=== PATIENT | female | born 1990 | race Caucasian/White ===

== ENCOUNTER 2016-09-20 10:31 | Inpatient (IN) | payer OTHER ==
[~2016-09-20] VITALS: Ht 162.6 cm; Wt 58.1 kg
[2016-09-20] MEDS ORDERED: ONDA4TAB6 PO (10:46)
[2016-09-20] MEDS ORDERED: ACET-654 PO (10:46)
[2016-09-20] MEDS ORDERED: SYNT150T PO (10:46)
[2016-09-20] MEDS ORDERED: MORP15TA2 PO (10:46)
[2016-09-20] MEDS ORDERED: ONDANSETRON 4MG/2ML VIAL (J2405) IV ONE ×2 (13:00→19:00)
[2016-09-20] MEDS ORDERED: KETOROLAC 30 MG/ML VIAL (J1885) IV ONE (13:00)
[2016-09-20] MEDS ORDERED: GASTROGRAFIN SOLUTION 30ML (Q9963) As Ordered ONE (13:26)
[2016-09-20 14:17] LABS: BASO % 0.4 % (0.0-1.0); LARGE UNSTAINED CELL # 0.1 K/mm3 (0.0-0.4); LARGE UNSTAINED CELL % 1.2 % (0.0-4.0); LYMPH # 1.4 K/mm3 (1.5-6.5); MEAN CORPUSCULAR HEMOGLOBIN 33.3 pg (27.0-33.0); MEAN CORPUSCULAR HGB CONC 33.2 g/dl (32.0-36.5); MEAN CORPUSCULAR VOLUME 100.4 fl (80.0-96.0); MONO # 0.4 K/mm3 (0.0-0.8); MONO % 8.4 % (0.0-5.0); NEUTROPHILS # 2.7 K/mm3 (1.8-7.7); PLATELET COUNT, AUTOMATED 195 k/mm3 (150-450); WHITE BLOOD COUNT 4.5 K/mm3 (4.0-10.0)
[2016-09-20 14:37] LABS: ALBUMIN 3.7 GM/DL (3.2-5.2); ALBUMIN/GLOBULIN RATIO 1.06 (1.00-1.93); ALKALINE PHOSPHATASE 111 U/L (45-117); ALT/SGPT 104 U/L (12-78); AMYLASE 368 U/L (25-115); ANION GAP 5 MEQ/L (8-16); AST/SGOT 88 U/L (15-37); BILIRUBIN,DIRECT 0.1 MG/DL (0.0-0.2); BILIRUBIN,TOTAL 0.5 MG/DL (0.2-1.0); BLOOD UREA NITROGEN 5 MG/DL (7-18); CALCIUM LEVEL 8.9 MG/DL (8.5-10.1); CARBON DIOXIDE LEVEL 27 MEQ/L (21-32); CHLORIDE LEVEL 102 MEQ/L (98-107); CREATININE FOR GFR 0.63 MG/DL (0.55-1.02); GLOMERULAR FILTRATION RATE > 60.0 (>60); GLUCOSE, FASTING 82 MG/DL (70-105); SODIUM LEVEL 134 MEQ/L (136-145); TOTAL PROTEIN 7.2 GM/DL (6.4-8.2)
[2016-09-20] MEDS ORDERED: ISOVUE-370 76% 100ML VIAL (Q9967) As Ordered ONE (15:05)
[2016-09-20] MEDS ORDERED: MORPHINE 2 MG/ML 1ML SYRINGE IV ONE (16:15)
--- NOTE | 2016-09-20 17:33 | REP ---
CT ABDOMEN AND PELVIS WITH ORAL AND IV CONTRAST: TECHNIQUE: Axial contrast enhanced images from the lung bases to the pubic symphysis using 100 mL Isovue 370 intravenous contrast material with multiplanar reformations. There are mild dependent atelectatic changes in the visualized lung bases. Patchy low density throughout the liver is compatible with geographic fatty infiltration. Spleen, adrenals and kidneys appear unremarkable. There is diffuse low density in the tail of the pancreas with surrounding streaky inflammatory change compatible with pancreatitis. There is a pseudocyst also seen in the tail of the pancreas measuring 2.8 cm in diameter. No other cysts are seen in the abdomen. No adenopathy is seen. There is no abdominal aortic aneurysm. There is no free air. There is mild free fluid in the pelvis. No bowel wall thickening is seen. I see no pelvic mass. The urinary bladder appears unremarkable. IMPRESSION: Findings compatible with pancreatitis. There is a pseudocyst in the tail of the pancreas 2.8 cm in diameter. There is mild free fluid in the pelvis. There is patchy fatty infiltration of the liver. Signed by Monroe Sanders MD 09/21/2016 07:41 P
--- NOTE | 2016-09-20 18:02 | REP ---
RIGHT UPPER QUADRANT ULTRASOUND: Real-time sonographic evaluation of the right upper quadrant performed. The gallbladder demonstrates no evidence of intraluminal sludge or calculi, wall thickening or pericholecystic fluid. There is no intrahepatic or extrahepatic biliary dilatation, common bile duct measuring 4 mm in diameter. The liver demonstrates no mass. The pancreas is not optimally seen due to overlying bowel gas in the region of the pancreatic tail, but the remaining portion demonstrates no significant abnormality. The right kidney demonstrates no hydronephrosis or nephrolithiasis with normal size at 9.4 cm in length. No ascites is seen. IMPRESSION: Essentially negative right upper quadrant ultrasound. Signed by Monroe Sanders MD 09/21/2016 07:41 P
[2016-09-20] MEDS ORDERED: MORPHINE 4 MG/ML 1ML SYRINGE IV ONE (19:00)
[2016-09-20] MEDS: NS 1,000 ML IV SCH (19:28)
--- NOTE | 2016-09-20 20:07 | HPEPDOC ---
General Date of Admission Sep 20, 2016 at 19:28 Other Providers PCP: Morales Barajas DO Chief Complaint The patient is a 26-year-old female admitted with a reason for visit of Pancreatic Pseudocyst. History of Present Illness 26-year-old female with history of papillary thyroid cancer status post total thyroidectomy in 2012 and currently on supplemental levothyroxine presented to the ER with a chief complaint of abdominal pain. According to the patient she was diagnosed with pancreatitis one month ago in the [facility]. She was subsequently discharged home after her lipase levels improved. However, the patient ended up going back to the hospital within 1 week in the [facility] area after she had recurrent abdominal pain. At that time , the patient states that she was diagnosed with a pancreatic pseudocyst on CT. She was discharged home on by mouth antibiotics and by mouth morphine. The patient states that she had been doing well over the last 2-3 weeks, however her abdominal pain returned 3 days ago. She describes the pain as sharp predominantly on the left side and radiating around the back. She rates the pain 8 out of 10 at its worst. The pain is exacerbated by eating anything. She does note that she has had episodes of nausea and vomiting associated with abdominal pain. She denies any diarrhea. The patient denies any fevers, chills, chest pain, palpitations, shortness of breath, recent sick contacts, alcohol use , or any other acute complaints. In the ER, a CT scan of the abdomen was notable for findings compatible with pancreatitis. In addition, there was a pseudocyst in the tail of the pancreas measuring 2.8 cm in diameter noted. These findings were discussed with our on- call surgeon who has recommended no surgical intervention at this time, and to continue to treat medically. The patient will be admitted to the hospitalist service for further medical management. Home Medications Scheduled Levothyroxine Sodium (Synthroid) 150 Mcg Tab, 150 MCG PO DAILY, (Reported) Scheduled PRN Acetaminophen (Acetaminophen) 325 Mg Tab, 650 MG PO Q4H PRN for PAIN, (Reported) Morphine Sulfate (Morphine Sulfate) 15 Mg Tab, 15 MG PO QHS PRN for PAIN, ( Reported) Ondansetron (Ondansetron Odt) 4 Mg Tab, 4 MG PO TID PRN for NAUSEA, (Reported) Allergies Coded Allergies: Cefaclor (Verified Allergy, Unknown, 09/20/16) Past Medical History Medical History As noted in HPI. Surgical History Total thyroidectomy in 2013, tonsillectomy Family History Significant Family History: No pertinent family hx Social History * Smoker: Denies Alcohol: occationally Drugs: denies Recent Travel/Sick Contacts: Denies: Recent sick contacts Review of Symptoms Other systems 10 point review of systems negative unless otherwise specified in HPI. Physical Examination General Exam: Positive: Alert, Cooperative, No Acute Distress, Other (tearful/ emotional when talking about the last few weeks of recurrent ER visits/ admissions) ENT Exam: Positive: Atraumatic, Mucous membr. moist/pink Neck Exam: Negative: JVD Chest Exam: Positive: Clear to auscultation, Normal air movement Heart Exam: Positive: Rate Normal, Normal S1, Normal S2 Telemetry: Positive: Sinus Abdomen Exam: Positive: Soft, Other (Mild tenderness to deep palpation L>R quadrants. No guarding, rebound tenderness, or rigidity noted) Extremity Exam: Negative: Tenderness, Swelling Psych Exam: Positive: Oriented x 3 Vital Signs Vital Signs Date Time Temp Pulse Resp B/P (MAP) Pulse Ox O2 Delivery O2 Flow Rate FiO2 09/20/16 19:19 18 09/20/16 17:56 98.7 63 135/73 (93) 98 09/20/16 15:03 Room Air Laboratory Data Labs 24H Laboratory Tests 2 09/20/16 13:37: White Blood Count 4.5, Red Blood Count 3.39L, Hemoglobin 11.3L, Hematocrit 34.0L , Mean Corpuscular Volume 100.4H, Mean Corpuscular Hemoglobin 33.3H, Mean Corpuscular Hemoglobin Concent 33.2, Red Cell Distribution Width 13.0, Platelet Count 195, Neutrophils (%) (Auto) 60.0, Lymphocytes (%) (Auto) 29.0, Monocytes ( %) (Auto) 8.4H, Eosinophils (%) (Auto) 1.0, Basophils (%) (Auto) 0.4, Neutrophils # (Auto) 2.7, Lymphocytes # (Auto) 1.4L, Monocytes # (Auto) 0.4, Eosinophils # (Auto) 0.0, Basophils # (Auto) 0.0, Large Unclassified Cells % 1.2 , Large Unclassified Cells # 0.1, Urine Appearance CLEAR, Urine Color YELLOW, Urine pH 6.0, Urine Specific [place] 1.006, Urine Protein NEGATIVE, Urine Glucose (UA) NEGATIVE, Urine Ketones NEGATIVE, Urine Urobilinogen 0.2, Urine Bilirubin NEGATIVE, Urine Leukocyte Esterase NEGATIVE, Urine Blood NEGATIVE, Urine Nitrite NEGATIVE, Urine WBC (Auto) 1, Urine RBC (Auto) 2, Urine Hyaline Casts (Auto) 0, Urine Bacteria (Auto) NEGATIVE, Urine Squamous Epithelial Cells 0, Urine Sperm (Auto) , Anion Gap 5L, Glomerular Filtration Rate > 60.0, Lactic Acid Level 0.6, Calcium Level 8.9, Aspartate Amino Transf (AST/SGOT) 88H, Alanine Aminotransferase (ALT/SGPT) 104H, Alkaline Phosphatase 111, Total Bilirubin 0.5, Direct Bilirubin 0.1, C-Reactive Protein, Quantitative 5.31H, Total Protein 7.2, Albumin 3.7, Albumin/Globulin Ratio 1.06, Amylase Level 368H , Lipase 2241H CBC/BMP Laboratory Tests 09/20/16 13:37 Red Blood Count 3.39 L, Mean Corpuscular Volume 100.4 H, Mean Corpuscular Hemoglobin 33.3 H, Mean Corpuscular Hemoglobin Concent 33.2, Red Cell Distribution Width 13.0, Neutrophils (%) (Auto) 60.0, Lymphocytes (%) (Auto) 29.0, Monocytes (%) (Auto) 8.4 H, Eosinophils (%) (Auto) 1.0, Basophils (%) ( Auto) 0.4, Neutrophils # (Auto) 2.7, Lymphocytes # (Auto) 1.4 L, Monocytes # ( Auto) 0.4, Eosinophils # (Auto) 0.0, Basophils # (Auto) 0.0 Plan / VTE VTE Prophylaxis Ordered?: Yes Plan Plan Recurrent Pancreatitis with Pseudocyst Formation CT Scan of the Abd notable for pancreatitis and a pseudocyst in the tail of the pancreas 2.8 cm in diameter U/S of the RUQ with no acute findings These findings were discussed by our ER provider with surgeon vice president consulting services-->no surgical intervention indicated at this time, cont med management Lipase level noted to be 2200+ Patient Kept NPO IVF Hydration Morphine prn for pain We will cont to monitor the patient and advance diet as tolerated Transaminitis Liver U/S with no acute findings noted Will cont to serially trend History of papillary thyroid cancer status post thyroidectomy in 2012 Cont Supplemental Levothyroxine DVT Prophylaxis Lovenox SC The patient will be admitted under the service of Dr. Salgado, who will begin to follow the patient on 09/21/16 @ 7am. AGNIESZKA COLLAZO MD Sep 20, 2016 20:07
[2016-09-20 20:45] VITALS: BP 114/67
[2016-09-20] MEDS: MORPHINE 2 MG/ML 1ML SYRINGE IV PRN (22:31)
[2016-09-21] MEDS: ONDANSETRON 4MG/2ML VIAL (J2405) IV PRN ×3 (03:00→22:13)
[2016-09-21] MEDS: NS 1,000 ML IV SCH (03:00)
[2016-09-21] MEDS: MORPHINE 2 MG/ML 1ML SYRINGE IV PRN ×3 (03:01→22:13)
[2016-09-21 04:00] VITALS: BP 101/49
[2016-09-21] MEDS: LEVOTHYROXINE 150MCG TABLET (0.15MG) PO SCH (06:01)
[2016-09-21 07:02] LABS: MEAN CORPUSCULAR HEMOGLOBIN 33.7 pg (27.0-33.0); MEAN CORPUSCULAR HGB CONC 32.9 g/dl (32.0-36.5); MEAN CORPUSCULAR VOLUME 102.4 fl (80.0-96.0); RED CELL DISTRIBUTION WIDTH 12.9 % (11.5-14.5); WHITE BLOOD COUNT 3.6 K/mm3 (4.0-10.0)
[2016-09-21 07:21] LABS: ALBUMIN 3.1 GM/DL (3.2-5.2); ALBUMIN/GLOBULIN RATIO 1.11 (1.00-1.93); ALKALINE PHOSPHATASE 83 U/L (45-117); ALT/SGPT 67 U/L (12-78); ANION GAP 12 MEQ/L (8-16); AST/SGOT 38 U/L (15-37); BILIRUBIN,TOTAL 0.7 MG/DL (0.2-1.0); BLOOD UREA NITROGEN 12 MG/DL (7-18); CALCIUM LEVEL 8.2 MG/DL (8.5-10.1); CARBON DIOXIDE LEVEL 18 MEQ/L (21-32); CHLORIDE LEVEL 108 MEQ/L (98-107); CREATININE FOR GFR 0.54 MG/DL (0.55-1.02); GLOMERULAR FILTRATION RATE > 60.0 (>60); GLUCOSE, FASTING 57 MG/DL (70-105); MAGNESIUM LEVEL 1.8 MG/DL (1.8-2.4); SODIUM LEVEL 138 MEQ/L (136-145); TOTAL PROTEIN 5.9 GM/DL (6.4-8.2); TRIGLYCERIDES LEVEL 47 MG/DL (<150)
[2016-09-21 07:35] VITALS: BP 100/52
[2016-09-21] MEDS: ENOXAPARIN 40 MG/0.4 ML SYRINGE (J1650) SC SCH (09:09)
[2016-09-21] MEDS: ACETAMINOPHEN TAB 650MG DOSE (2X325MG) PO PRN (09:10)
[2016-09-21] MEDS ORDERED: PERCOCET 5MG/325MG TAB PO PRN (09:15)
[2016-09-21] MEDS: D5W/0.45% SODIUM CHLORIDE 1,000 ML IV SCH ×2 (09:35→20:00)
[2016-09-21] MEDS ORDERED: MORPHINE 2 MG/ML 1ML SYRINGE As Ordered ONE (10:51)
[2016-09-21] MEDS: IBUPROFEN 400 MG TAB PO PRN ×2 (14:41→22:13)
[2016-09-21 15:30] VITALS: BP 115/74
--- NOTE | 2016-09-21 16:20 | IPNPDOC ---
Subjective Date Seen The patient was seen on 09/21/16. Subjective Chief Complaint/HPI The patient is a 26-year-old female admitted with a reason for visit of Pancreatic Pseudocyst. Events since last encounter Patient reports that the pain has improved from yesterday. Shows more sharp and about 8 out of 10. Today is more soreness and is more of a 6 out of 10. Patient denies any chest pain, shortness of breath, palpitations. Patient does admit to drinking alcohol this had been a while back and is not constant. Patient has been admitted to several hospitals with pancreatitis over the last month. Nausea is being well controlled with Zofran in the hospital and no vomiting since being admitted. Is currently nothing by mouth and patient admits to being thirsty and hungry. Constitutional: Denies: Chills, Fever Eyes: Denies: Vision change ENT: Denies: Head Aches, Ear Pain Skin: Denies: Rash, Lesions Pulmonary: Denies: Dyspnea, Cough Cardiovascular: Denies: Chest Pain, Palpitations Gastrointestinal: Reports: Nausea (controlled with zofran. ), Vomiting (Did have some vomiting 1 week ago. No blood. None since then. None on this admission. ), Abdominal Pain (Pressure. 6/10, was more sharp and 8/10 on admission. ), Denies: Melena, Hematochezia Genitourinary: Denies: Dysuria, Frequency Hematologic: Denies: Bruising, Bleeding Excessively Musculoskeletal: Reports: Back Pain (Some back pressure. ) Neurological: Reports: Weakness (Not eating well, does not feel herself. Weaker all over. ), Denies: Change in speech, Confusion Psych: Reports: Mood Normal Objective Physical Examination General Exam: Positive: Alert, Cooperative, No Acute Distress Eye Exam: Positive: PERRLA, Conjunctiva & lids normal, EOMI, Negative: Sclera icteric ENT Exam: Positive: Atraumatic, Mucous membr. moist/pink Neck Exam: Positive: Supple, Negative: JVD Chest Exam: Positive: Clear to auscultation, Normal air movement Heart Exam: Positive: Rate Normal, Normal S1, Normal S2 Abdomen Exam: Positive: Normal bowel sounds, Soft, Tenderness, Other (Mild tenderness to deep palpation upper>lower quadrants. No guarding, rebound tenderness, or rigidity noted) Extremity Exam: Positive: Normal pulses (radial pulse 2/4 bilaterally), Negative: Edema, Tenderness, Swelling Neuro Exam: Positive: Normal Speech Psych Exam: Positive: Mood NL, Oriented x 3 Assessment /Plan Problems (1) Pancreatic pseudocyst Status: Acute Problem Text: Surgery had been counseled for this patient. Per Dr. Bunn, the patient does not need surgery at this time. Appreciate his assistance in management of this patient at this time. Continue nonsurgical management. Discussed patient with Dr. Dee. Patient was originally scheduled to see Dr. Dee in outpatient setting tomorrow. He agreed to see the patient. Consult has been placed. Appreciate his assistance in management of this patient. Patient is currently on Tylenol by mouth for mild pain and morphine every 2 hours for severe pain. Patient has moderate pain currently and will prescribing patient ibuprofen for this. Patient notes that Percocet and other pain medications similar to its cause her to be nauseous and vomit during previous admissions. Discontinuing the morphine at this time. We'll continue patient on ibuprofen and Tylenol as needed. Patient is currently nothing by mouth at this time. We'll continue this for now. Patient is receiving normal saline IV. We'll change this to D5W half- normal saline due to patient's low glucose this morning. (2) Recurrent pancreatitis Problem Text: Patient is having recurrent episodes of pancreatitis with a past month. Approximately 4 times including this visit. Alcohol is a common cause of pancreatitis. However, patient does not admit to drinking regular basis. Did have a few drinks socially in [place] when she was on leave. Has not had any alcohol since then. This makes this less likely a cause. Gallstones or another common cause of pancreatitis. Liver ultrasound was performed and was read as an essentially negative right upper quadrant ultrasound. This makes this less likely. Different medications can cause pancreatitis. However the only medication patient takes regularly prior to previous month was levothyroxine. This is not a common medication to cause pancreatitis. Hypertriglyceridemia be potential cause. This has not been checked on this admission and is ordered for tomorrow morning to be fasting. This will need to be checked to rule out. Cause at this time is believed to be from her pseudocyst. Approximately 2.[address] scan. General surgery and gastroenterology have been consult. Appreciate their assistance with care of this patient. (3) Transaminitis Problem Text: Liver ultrasound showed no acute findings. Liver enzymes decreased on labs this morning. We'll continue to follow-up as needed. Labs will be ordered for the morning. (4) Hx of papillary thyroid carcinoma Problem Text: Patient has a history of papillary thyroid cancer with thyroidectomy in 2012. Patient takes Synthroid 150 Mcg daily. Continue home dose at this time. Monitor as needed. Plan/VTE VTE Prophylaxis Ordered?: Yes (Lovenox daily subcutaneous) VS, I&O, 24H, Fishbone Vital Signs/I&O Vital Signs Date Time Temp Pulse Resp B/P (MAP) Pulse Ox O2 Delivery O2 Flow Rate FiO2 09/21/16 07:35 99.0 70 18 100/52 (68) 97 Room Air I&O- Last 24 Hours up to 6 AM 09/21/16 05:59 Intake Total 0 ml Output Total 0 ml Balance 0 ml Laboratory Data 24H LABS Laboratory Tests 2 09/20/16 13:37: White Blood Count 4.5, Red Blood Count 3.39L, Hemoglobin 11.3L, Hematocrit 34.0L , Mean Corpuscular Volume 100.4H, Mean Corpuscular Hemoglobin 33.3H, Mean Corpuscular Hemoglobin Concent 33.2, Red Cell Distribution Width 13.0, Platelet Count 195, Neutrophils (%) (Auto) 60.0, Lymphocytes (%) (Auto) 29.0, Monocytes ( %) (Auto) 8.4H, Eosinophils (%) (Auto) 1.0, Basophils (%) (Auto) 0.4, Neutrophils # (Auto) 2.7, Lymphocytes # (Auto) 1.4L, Monocytes # (Auto) 0.4, Eosinophils # (Auto) 0.0, Basophils # (Auto) 0.0, Large Unclassified Cells % 1.2 , Large Unclassified Cells # 0.1, Urine Appearance CLEAR, Urine Color YELLOW, Urine pH 6.0, Urine Specific [place] 1.006, Urine Protein NEGATIVE, Urine Glucose (UA) NEGATIVE, Urine Ketones NEGATIVE, Urine Urobilinogen 0.2, Urine Bilirubin NEGATIVE, Urine Leukocyte Esterase NEGATIVE, Urine Blood NEGATIVE, Urine Nitrite NEGATIVE, Urine WBC (Auto) 1, Urine RBC (Auto) 2, Urine Hyaline Casts (Auto) 0, Urine Bacteria (Auto) NEGATIVE, Urine Squamous Epithelial Cells 0, Urine Sperm (Auto) , Anion Gap 5L, Glomerular Filtration Rate > 60.0, Lactic Acid Level 0.6, Calcium Level 8.9, Aspartate Amino Transf (AST/SGOT) 88H, Alanine Aminotransferase (ALT/SGPT) 104H, Alkaline Phosphatase 111, Total Bilirubin 0.5, Direct Bilirubin 0.1, C-Reactive Protein, Quantitative 5.31H, Total Protein 7.2, Albumin 3.7, Albumin/Globulin Ratio 1.06, Amylase Level 368H , Lipase 2241H 09/21/16 06:40: Anion Gap 12, Glomerular Filtration Rate > 60.0, Calcium Level 8.2L, Aspartate Amino Transf (AST/SGOT) 38H, Alanine Aminotransferase (ALT/SGPT) 67, Alkaline Phosphatase 83, Total Bilirubin 0.7, Total Protein 5.9L, Albumin 3.1L, Albumin/ Globulin Ratio 1.11, Lipase 788H, Blood Urea Nitrogen 12#, Creatinine 0.54L, Sodium Level 138, Potassium Level 4.0, Chloride Level 108H, Carbon Dioxide Level 18L, Triglycerides Level 47, Magnesium Level 1.8 CBC/BMP Laboratory Tests 09/20/16 13:37 Red Blood Count 3.39 L, Mean Corpuscular Volume 100.4 H, Mean Corpuscular Hemoglobin 33.3 H, Mean Corpuscular Hemoglobin Concent 33.2, Red Cell Distribution Width 13.0, Neutrophils (%) (Auto) 60.0, Lymphocytes (%) (Auto) 29.0, Monocytes (%) (Auto) 8.4 H, Eosinophils (%) (Auto) 1.0, Basophils (%) ( Auto) 0.4, Neutrophils # (Auto) 2.7, Lymphocytes # (Auto) 1.4 L, Monocytes # ( Auto) 0.4, Eosinophils # (Auto) 0.0, Basophils # (Auto) 0.0 09/21/16 06:40 Red Blood Count 2.98 L, Mean Corpuscular Volume 102.4 H, Mean Corpuscular Hemoglobin 33.7 H, Mean Corpuscular Hemoglobin Concent 32.9, Red Cell Distribution Width 12.9, Calcium Level 8.2 L, Aspartate Amino Transf (AST/SGOT) 38 H, Alanine Aminotransferase (ALT/SGPT) 67, Alkaline Phosphatase 83, Total Bilirubin 0.7, Triglycerides Level 47, Total Protein 5.9 L, Albumin 3.1 L GME ATTESTATION GME ATTESTATION My preceptor for this patient encounter was Dr. Salgado and he was physically present in the building during the encounter and was fully available. As needed , all aspects of the patient interview, examination, medical decision making process, and medical care plan development were reviewed and approved by the preceptor. Preceptor is aware and concurs with the plan as stated in the body of this note and will attest to such by his/her co-signature. YUNG VAN DO Sep 21, 2016 10:54
[2016-09-22] VITALS: BP 120/75
[2016-09-22] MEDS: ONDANSETRON 4MG/2ML VIAL (J2405) IV PRN ×2 (04:54→18:30)
[2016-09-22] MEDS: D5W/0.45% SODIUM CHLORIDE 1,000 ML IV SCH ×2 (04:55→18:35)
[2016-09-22] MEDS: LEVOTHYROXINE 150MCG TABLET (0.15MG) PO SCH (06:28)
[2016-09-22 08:00] VITALS: BP 106/61
[2016-09-22 08:24] LABS: MEAN CORPUSCULAR HEMOGLOBIN 33.3 pg (27.0-33.0); MEAN CORPUSCULAR HGB CONC 33.8 g/dl (32.0-36.5); MEAN CORPUSCULAR VOLUME 98.5 fl (80.0-96.0); RED CELL DISTRIBUTION WIDTH 12.8 % (11.5-14.5); WHITE BLOOD COUNT 3.1 K/mm3 (4.0-10.0)
--- NOTE | 2016-09-22 08:26 | IPNPDOC ---
Subjective General Date/Time Seen The patient was seen on 09/20/16 at 16:29. Subject Chief Complaint/History The patient is a 26-year-old female admitted with a reason for visit of abdominal pain, subacute pancreatitis with pancreatic pseudocyst. She reports she had acute pancreatitis at about August 22 when she was admitted while in [place] for sudden onset of severe epigastric pain and vomiting. Workup there did not reveal any gallstones. It was suspected maybe due to recent alcohol intake. She reports her brother also has had acute pancreatitis. She stayed there for a few days. She tells me she OD'd on dilaudid. She was eventually discharged home but continues to have severe abdominal pain and was re-admitted at a different hospital. Workup there showed she developed a pancreatic pseudocyst. She stayed another few days until her pain was controlled. She was discharged on 15 mg of oral morphine she takes twice a day. Her abdominal discomfort continue but to a tolerable level (3-5) with the pain meds. 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 She followed with the army doctors in [facility] and has a gastroentorology consult pending with Dr. Dee. Over the weekend and past couple of days patient reports severe abdominal pain with associated nausea. Pain located on the left upper quadrant area worse with movements. She denies fevers or chills. She was advised to be seen at the emergency room. She presented herself at [facility] over the weekend, sent home. She presents herself to our emergency room today. Current Medications Current Medications Current Medications Home Med (Med Rec Complete!) ASDIRECTED XX ; Start 09/20/16 at 15:45; Stop at 15:53; Status DC Allergies Coded Allergies: Cefaclor (Verified Allergy, Unknown, 09/20/16) Objective Physical Examination Examination GENERAL APPEARANCE:Patient seen, laying in bed, awake, alert, and oriented. Fairly comfortable appearing when I walked into the room though she is mildly uncomfortable laying down flat on the bed to removing around the bed . SKI N: Warm and moist. HEENT: Normocephalic, atraumatic. [place] palpebral conjunctiva, anicteric sclerae. Lips and mucosa appear moist. NECK: Supple, no thyromegaly. No obvious jugular venous distention. LUNGS: Clear to auscultation bilaterally. No wheezing appreciated. HEART: No chest wall abnormalities. Regular rate and rhythm with no murmurs appreciated. ABDOMEN: Abdomen is minimally distended, soft, flat. [No hepatosplenomegaly. No umbilical or groin herniations, moderately tender on palpation over the left upper quadrant area with some guarding nontender on the right upper quadrant area or right lower quadrant. EXTREMITIES: Extremities have no deformities. No edema identified. Vital Signs Vital Signs Date Time Temp Pulse Resp B/P (MAP) Pulse Ox O2 Delivery O2 Flow Rate FiO2 09/20/16 16:26 18 09/20/16 15:03 97.9 65 106/58 (74) 99 Room Air Laboratory Data Labs 24H Laboratory Tests 2 09/20/16 13:37: White Blood Count 4.5, Red Blood Count 3.39L, Hemoglobin 11.3L, Hematocrit 34.0L , Mean Corpuscular Volume 100.4H, Mean Corpuscular Hemoglobin 33.3H, Mean Corpuscular Hemoglobin Concent 33.2, Red Cell Distribution Width 13.0, Platelet Count 195, Neutrophils (%) (Auto) 60.0, Lymphocytes (%) (Auto) 29.0, Monocytes ( %) (Auto) 8.4H, Eosinophils (%) (Auto) 1.0, Basophils (%) (Auto) 0.4, Neutrophils # (Auto) 2.7, Lymphocytes # (Auto) 1.4L, Monocytes # (Auto) 0.4, Eosinophils # (Auto) 0.0, Basophils # (Auto) 0.0, Large Unclassified Cells % 1.2 , Large Unclassified Cells # 0.1, Urine Appearance CLEAR, Urine Color YELLOW, Urine pH 6.0, Urine Specific [place] 1.006, Urine Protein NEGATIVE, Urine Glucose (UA) NEGATIVE, Urine Ketones NEGATIVE, Urine Urobilinogen 0.2, Urine Bilirubin NEGATIVE, Urine Leukocyte Esterase NEGATIVE, Urine Blood NEGATIVE, Urine Nitrite NEGATIVE, Urine WBC (Auto) 1, Urine RBC (Auto) 2, Urine Hyaline Casts (Auto) 0, Urine Bacteria (Auto) NEGATIVE, Urine Squamous Epithelial Cells 0, Urine Sperm (Auto) , Anion Gap 5L, Glomerular Filtration Rate > 60.0, Lactic Acid Level 0.6, Calcium Level 8.9, Aspartate Amino Transf (AST/SGOT) 88H, Alanine Aminotransferase (ALT/SGPT) 104H, Alkaline Phosphatase 111, Total Bilirubin 0.5, Direct Bilirubin 0.1, C-Reactive Protein, Quantitative 5.31H, Total Protein 7.2, Albumin 3.7, Albumin/Globulin Ratio 1.06, Amylase Level 368H , Lipase 2241H CBC/BMP Laboratory Tests 09/20/16 13:37 Red Blood Count 3.39 L, Mean Corpuscular Volume 100.4 H, Mean Corpuscular Hemoglobin 33.3 H, Mean Corpuscular Hemoglobin Concent 33.2, Red Cell Distribution Width 13.0, Neutrophils (%) (Auto) 60.0, Lymphocytes (%) (Auto) 29.0, Monocytes (%) (Auto) 8.4 H, Eosinophils (%) (Auto) 1.0, Basophils (%) ( Auto) 0.4, Neutrophils # (Auto) 2.7, Lymphocytes # (Auto) 1.4 L, Monocytes # ( Auto) 0.4, Eosinophils # (Auto) 0.0, Basophils # (Auto) 0.[address] of the abdomen and pelvis with oral and IV contrast Findings compatible with pancreatitis. There is a pseudocyst in the tail of the pancreas 2.8 cm in diameter. There is mild free fluid in the pelvis. There is patchy fatty infiltration of the liver. Ultrasound abdomen Essentially negative right upper quadrant ultrasound. Impression Subacute pancreatitis I believe the cyst is still the same process that started in August, probably small the cage of activated pancreatic enzymes within the pseudocyst or just from the generalized inflammation of the pancreas. Pancreatic pseudocyst she does report some tenderness over where the pseudocyst seems to be located and also some nausea though the symptoms can also be just from the generalized pancreatic inflammation Check gallbladder ultrasound for stones to rule out gallstones as a cause of the pancreatitis. Need overall just pain control. The pancreatic pseudocyst measures 2.8 cm. This is abutting the posterior wall of the stomach. This most likely can be watched to see if it resolves. If it continues to be symptomatic preferred drainage is through a cyst gastrostomy usually done via endoscopy and endoscopic ultrasound. Unfortunately our institution is not capable of this. Usually done with an endoscopic ultrasound to be able to perform drainage through the stomach. Patient may have to be referred outside for this. Plan / VTE VTE Prophylaxis Ordered?: Yes SUSIE GREGORY MD Sep 20, 2016 17:16
[2016-09-22 08:55] LABS: ALBUMIN 3.1 GM/DL (3.2-5.2); ALBUMIN/GLOBULIN RATIO 1.07 (1.00-1.93); ALKALINE PHOSPHATASE 78 U/L (45-117); ALT/SGPT 47 U/L (12-78); AMYLASE 132 U/L (25-115); ANION GAP 8 MEQ/L (8-16); AST/SGOT 20 U/L (15-37); BILIRUBIN,TOTAL 0.5 MG/DL (0.2-1.0); BLOOD UREA NITROGEN 4 MG/DL (7-18); CALCIUM LEVEL 8.3 MG/DL (8.5-10.1); CARBON DIOXIDE LEVEL 23 MEQ/L (21-32); CHLORIDE LEVEL 108 MEQ/L (98-107); CHOLESTEROL LEVEL 82 MG/DL (<200); GLOMERULAR FILTRATION RATE > 60.0 (>60); GLUCOSE, FASTING 106 MG/DL (70-105); POTASSIUM SERUM 3.4 MEQ/L (3.5-5.1); SODIUM LEVEL 139 MEQ/L (136-145); TRIGLYCERIDES LEVEL 61 MG/DL (<150)
[2016-09-22 10:21] LABS: MAGNESIUM LEVEL 1.7 MG/DL (1.8-2.4)
[2016-09-22] MEDS: ENOXAPARIN 40 MG/0.4 ML SYRINGE (J1650) SC SCH (12:14)
[2016-09-22] MEDS ORDERED: POTASSIUM CHLORIDE 10 MEQ SR TABLET PO ONE (13:15)
[2016-09-22] MEDS ORDERED: MAG SULF 1GM/100ML (MAG RUN) 1 GM in APPROPRIATE DILUENT 1 EA IV ONE (13:15)
--- NOTE | 2016-09-22 14:11 | REP ---
MRCP: MRCP exam is accomplished utilizing multiple heavily T2-weighted sequences in the axial and coronal planes with MIP reconstruction images performed. Correlation is made with CT from 09/20/2016. The gallbladder demonstrates no filling defect. There is no intrahepatic or extrahepatic biliary dilatation. The common bile duct has a maximum diameter of 5 mm. There is no evidence of choledocholithiasis. The pancreatic duct is normal in caliber. Somewhat complex cyst is again seen in the tail of the pancreas measuring approximately 3.2 cm in diameter. There is associated pancreatic inflammation in the body and tail of the pancreas. No other fluid collections are seen. IMPRESSION: No evidence of cholelithiasis or choledocholithiasis. No biliary dilatation. No pancreatic duct dilatation. Pancreatic pseudocyst again seen in the tail of the pancreas with associated pancreatitis involving the body and tail. Signed by Monroe Sanders MD 09/22/2016 04:28 P
--- NOTE | 2016-09-22 14:26 | IPNPDOC ---
Subjective Date Seen The patient was seen on 09/22/16. Subjective Chief Complaint/HPI The patient is a 26-year-old female admitted with a reason for visit of Pancreatic Pseudocyst. Events since last encounter Patient reports an improvement in pain. Describes it as a 3 out of 10 and is more of a dull ache. States she is benefiting from the ibuprofen and occasional morphine. Did have to take some Zofran overnight as she was nauseous. Did not sleep too well and went to sleep around 2 in the morning. Patient was sleepy on exam in the morning but a few hours later patient was more awake. Denies any vomiting. Admits to being hungry and would like to advance her diet. Constitutional: Denies: Chills, Fever Eyes: Denies: Pain, Vision change ENT: Denies: Head Aches, Ear Pain Skin: Denies: Rash, Lesions Pulmonary: Denies: Dyspnea, Cough Cardiovascular: Denies: Chest Pain, Palpitations Gastrointestinal: Reports: Nausea, Abdominal Pain (3/10), Denies: Vomiting, Diarrhea, Constipation Genitourinary: Denies: Dysuria, Frequency Musculoskeletal: Denies: Neck Pain Neurological: Denies: Weakness, Numbness, Change in speech Psych: Reports: Mood Normal Objective Physical Examination General Exam: Positive: Alert, Cooperative, No Acute Distress Eye Exam: Positive: PERRLA, Conjunctiva & lids normal, EOMI, Negative: Sclera icteric ENT Exam: Positive: Atraumatic, Mucous membr. moist/pink Neck Exam: Positive: Supple, Negative: JVD Chest Exam: Positive: Clear to auscultation, Normal air movement Heart Exam: Positive: Rate Normal, Normal S1, Normal S2 Abdomen Exam: Positive: Normal bowel sounds, Soft, Tenderness, Other (Mild tenderness to deep palpation upper>lower quadrants. No guarding, rebound tenderness, or rigidity noted) Extremity Exam: Positive: Normal pulses (radial pulse 2/4 bilaterally), Negative: Edema, Tenderness, Swelling Neuro Exam: Positive: Normal Speech Psych Exam: Positive: Mood NL, Oriented x 3 Assessment /Plan Problems (1) Pancreatic pseudocyst Status: Acute Problem Text: Surgery had been counseled for this patient. Per Dr. Bunn, the patient does not need surgery at this time. Appreciate his assistance in management of this patient at this time. Continue nonsurgical management. Discussed patient with Dr. Dee. Patient was originally scheduled to see Dr. Dee in outpatient setting tomorrow. He agreed to see the patient. Consult has been placed. Discussed with Dr. Dee's morning. He recommends performing an MRCP as well as consulting with Dr. Peace interventional radiologist. There are 2.8 cm cyst should be able to resolve on its own. Dr. Wadsworth may be able to perform a percutaneous drainage of the cyst if needed. Appreciate his assistance in management of this patient. Discussed patient with Dr. Wadsworth, interventional radiologist. He recommends if cyst needs drain to perform via endoscopy ultrasound. That if performed through percutaneous could be a prolonged efforts and may be draining for some time such as months to years. This would depend on what they find upon insertion. Also consulted to discuss case with Dr. wilde in [place]. He is a maintenance and custodian supervisor. If a endoscopic ultrasound was considered. He would be able to perform. Discussed with patient with him and he believes to point centimeter should resolve on its own. To continue medical management at this time. He recommended to see if patient has possible underlying autoimmune pancreatitis and to check antibodies for this. Ordering IgG, IgG4, and SOHAN. The upon results of the MRCP if a stone is found can refer for ERCP or see outpatient if there is no stone. Patient is currently on ibuprofen and Tylenol as needed for [id number] pain. Patient has morphine every 6 hours 2 mg IV for severe pain. Changing patient to every 8 hours for morphine as needed. Continue patient on Zofran as needed. Patient did use Zofran twice yesterday for nausea. Patient is currently nothing by mouth at this time. Advance patient's diet to clear liquids. Patient is receiving D5W half-normal saline due to patient's low glucose yesterday morning. (2) Recurrent pancreatitis Problem Text: Patient is having recurrent episodes of pancreatitis with a past month. Approximately 4 times including this visit. Alcohol is a common cause of pancreatitis. However, patient does not admit to drinking regular basis. Did have a few drinks socially in [place] when she was on leave. Has not had any alcohol since then. This makes this less likely a cause. Gallstones or another common cause of pancreatitis. Liver ultrasound was performed and was read as an essentially negative right upper quadrant ultrasound. This makes this less likely. Different medications can cause pancreatitis. However the only medication patient takes regularly prior to previous month was levothyroxine. This is not a common medication to cause pancreatitis. Hypertriglyceridemia be potential cause. This has not been checked on this admission and was checked via lab this morning. Patient's fasting triglycerides are 61. This makes this less likely. C-reactive protein is trending down. Cause at this time is believed to be from her pseudocyst. Approximately 2.[address] scan[address] Per Dr. wilde's recommendation ordering antibody labs to rule out autoimmune hepatitis. General surgery and gastroenterology have been consult. Appreciate their assistance with care of this patient. (3) Transaminitis Problem Text: Liver ultrasound showed no acute findings. Liver enzymes decreased on labs this morning. We'll continue to follow-up as needed. Labs will be ordered for the morning. (4) Hx of papillary thyroid carcinoma Problem Text: Patient has a history of papillary thyroid cancer with thyroidectomy in 2012. Patient takes Synthroid 150 Mcg daily. Continue home dose at this time. Monitor as needed. Plan/VTE VTE Prophylaxis Ordered?: Yes (Lovenox) VS, I&O, 24H, Fishbone Vital Signs/I&O Vital Signs Date Time Temp Pulse Resp B/P (MAP) Pulse Ox O2 Delivery O2 Flow Rate FiO2 09/22/16 08:00 98.0 46 18 106/61 (76) 99 Room Air I&O- Last 24 Hours up to 6 AM 09/22/16 06:00 Intake Total 1375 ml Output Total 2700 ml Balance -1325 ml Laboratory Data 24H LABS Laboratory Tests 2 09/22/16 07:53: Anion Gap 8, Glomerular Filtration Rate > 60.0, Blood Urea Nitrogen 4#L, Creatinine 0.50L, Sodium Level 139, Potassium Level 3.4L, Chloride Level 108H, Carbon Dioxide Level 23, Calcium Level 8.3L, Aspartate Amino Transf (AST/SGOT) 20, Alanine Aminotransferase (ALT/SGPT) 47, Alkaline Phosphatase 78, Total Bilirubin 0.5, Triglycerides Level 61, LDL Cholesterol 46.8, Total Protein 6.0L , Albumin 3.1L, Magnesium Level 1.7L, C-Reactive Protein, Quantitative 2.35H, Albumin/Globulin Ratio 1.07, Total Cholesterol 82, Non-HDL Cholesterol (LDL + VLDL) 59, Total HDL Cholesterol 23L, Cholesterol/HDL Ratio 3.565, Amylase Level 132H, Lipase 536H CBC/BMP Laboratory Tests 09/22/16 07:53 Red Blood Count 3.20 L, Mean Corpuscular Volume 98.5 H, Mean Corpuscular Hemoglobin 33.3 H, Mean Corpuscular Hemoglobin Concent 33.8, Red Cell Distribution Width 12.8, Calcium Level 8.3 L, Aspartate Amino Transf (AST/SGOT) 20, Alanine Aminotransferase (ALT/SGPT) 47, Alkaline Phosphatase 78, Total Bilirubin 0.5, Triglycerides Level 61, LDL Cholesterol 46.8, Total Protein 6.0 L , Albumin 3.1 L GME ATTESTATION GME ATTESTATION My preceptor for this patient encounter was Dr. Salgado and he was physically present in the building during the encounter and was fully available. As needed , all aspects of the patient interview, examination, medical decision making process, and medical care plan development were reviewed and approved by the preceptor. Preceptor is aware and concurs with the plan as stated in the body of this note and will attest to such by his/her co-signature. YUNG VAN DO Sep 22, 2016 14:26
[2016-09-22 16:00] VITALS: BP 121/77
[2016-09-22 20:00] VITALS: BP 116/72
[2016-09-22] MEDS: ACETAMINOPHEN TAB 650MG DOSE (2X325MG) PO PRN (20:41)
[2016-09-22] MEDS: IBUPROFEN 400 MG TAB PO PRN (23:04)
[2016-09-22] MEDS ORDERED: MAALOX 30 ML SUSP *UDC PO ONE (23:15)
[2016-09-23] MEDS: D5W/0.45% SODIUM CHLORIDE 1,000 ML IV SCH ×2 (04:00→13:30)
[2016-09-23 04:04] VITALS: BP 91/51
[2016-09-23] MEDS: LEVOTHYROXINE 150MCG TABLET (0.15MG) PO SCH (06:14)
[2016-09-23 07:36] LABS: MEAN CORPUSCULAR HEMOGLOBIN 33.7 pg (27.0-33.0); MEAN CORPUSCULAR HGB CONC 34.3 g/dl (32.0-36.5); MEAN CORPUSCULAR VOLUME 98.3 fl (80.0-96.0); RED CELL DISTRIBUTION WIDTH 12.7 % (11.5-14.5); WHITE BLOOD COUNT 3.4 K/mm3 (4.0-10.0)
[2016-09-23 07:43] LABS: ALBUMIN 3.2 GM/DL (3.2-5.2); ALKALINE PHOSPHATASE 70 U/L (45-117); ALT/SGPT 42 U/L (12-78); AMYLASE 154 U/L (25-115); ANION GAP 4 MEQ/L (8-16); AST/SGOT 16 U/L (15-37); BILIRUBIN,TOTAL 0.4 MG/DL (0.2-1.0); BLOOD UREA NITROGEN 2 MG/DL (7-18); CALCIUM LEVEL 8.5 MG/DL (8.5-10.1); CARBON DIOXIDE LEVEL 28 MEQ/L (21-32); CHLORIDE LEVEL 112 MEQ/L (98-107); CREATININE FOR GFR 0.55 MG/DL (0.55-1.02); GLOMERULAR FILTRATION RATE > 60.0 (>60); GLUCOSE, FASTING 105 MG/DL (70-105); POTASSIUM SERUM 3.5 MEQ/L (3.5-5.1); SODIUM LEVEL 144 MEQ/L (136-145); TOTAL PROTEIN 6.1 GM/DL (6.4-8.2)
[2016-09-23 08:00] VITALS: BP 98/52
[2016-09-23] MEDS: ENOXAPARIN 40 MG/0.4 ML SYRINGE (J1650) SC SCH (09:31)
[2016-09-23] MEDS ORDERED: MORPHINE 2 MG/ML 1ML SYRINGE IV PRN (10:57)
[2016-09-23] MEDS ORDERED: MAALOX 30 ML SUSP *UDC PO PRN (11:00)
[2016-09-23] MEDS: PANTOPRAZOLE 40MG TAB (PROTONIX) PO SCH (11:32)
--- NOTE | 2016-09-23 15:44 | IPNPDOC ---
Subjective Date Seen The patient was seen on 09/23/16. Subjective Chief Complaint/HPI The patient is a 26-year-old female admitted with a reason for visit of Pancreatic Pseudocyst. Events since last encounter Patient reports the pain is getting better today. Rates the pain at approximately 3 out of 10. Still having some nausea but no vomiting. Reports some episodes of acid reflux. States this is been going on for a few weeks now. Comes and goes. Reports that Mylanta was beneficial. Seems to be tolerating the clear liquids. General: Denies: Chills Constitutional: Denies: Chills, Fever Eyes: Denies: Pain, Vision change ENT: Denies: Head Aches, Ear Pain Skin: Denies: Rash, Lesions Gastrointestinal: Reports: Nausea, Abdominal Pain (3/10 today), Other Symptoms (reflux, feels like bubbles. Mylanta helped. Also had one liquid stool yesterday. ), Denies: Vomiting, Melena, Hematochezia Genitourinary: Denies: Dysuria, Frequency Hematologic: Denies: Bruising, Bleeding Excessively Neurological: Denies: Weakness, Numbness, Change in speech, Confusion Psych: Reports: Mood Normal Objective Physical Examination General Exam: Positive: Alert, Cooperative, No Acute Distress Eye Exam: Positive: PERRLA, Conjunctiva & lids normal, EOMI, Negative: Sclera icteric ENT Exam: Positive: Atraumatic, Mucous membr. moist/pink Neck Exam: Positive: Supple, Negative: JVD Chest Exam: Positive: Clear to auscultation, Normal air movement Heart Exam: Positive: Rate Normal, Normal S1, Normal S2 Abdomen Exam: Positive: Normal bowel sounds, Soft, Tenderness, Other ( Tenderness and some pain to palpation left upper quadrant. No guarding, rebound tenderness, or rigidity noted) Extremity Exam: Positive: Normal pulses (radial pulse 2/4 bilaterally), Negative: Edema, Tenderness, Swelling Neuro Exam: Positive: Normal Speech Psych Exam: Positive: Mood NL, Oriented x 3 Assessment /Plan Problems (1) Pancreatic pseudocyst Status: Acute Problem Text: Surgery had been counseled for this patient. Per Dr. Bunn, the patient does not need surgery at this time. Appreciate his assistance in management of this patient at this time. Continue nonsurgical management. Discussed patient with Dr. Dee. Patient was originally scheduled to see Dr. Dee in outpatient setting tomorrow. He agreed to see the patient. Consult has been placed. Discussed with Dr. Dee's morning. He recommends performing an MRCP as well as consulting with Dr. Peace interventional radiologist. There are 2.8 cm cyst should be able to resolve on its own. Dr. Wadsworth may be able to perform a percutaneous drainage of the cyst if needed. Appreciate his assistance in management of this patient. Discussed patient with Dr. Wadsworth, interventional radiologist. He recommends if cyst needs drain to perform via endoscopy ultrasound. That if performed through percutaneous could be a prolonged efforts and may be draining for some time such as months to years. This would depend on what they find upon insertion. Also consulted to discuss case with Dr. wilde in [place]. He is a bellhop. If a endoscopic ultrasound was considered. He would be able to perform. Discussed with patient with him and he believes to point centimeter should resolve on its own. To continue medical management at this time. He recommended to see if patient has possible underlying autoimmune pancreatitis and to check antibodies for this. Ordering IgG, IgG4, and SOHAN. The upon results of the MRCP if a stone is found can refer for ERCP or see outpatient if there is no stone. Patient is currently on ibuprofen and Tylenol as needed for [id number] pain. Patient has morphine every 6 hours 2 mg IV for severe pain. Changing patient to every 8 hours for morphine as needed. Continue patient on Zofran as needed. Patient did use Zofran twice yesterday for nausea. Patient is currently clear liquid diet. No vomiting. Some nausea. Patient reports some reflux symptoms, happening on and off for past month. Patient is receiving D5W half-normal saline due to patient's low glucose yesterday morning. Continuing fluids today. Lipase jumped today. Discussed with Dr. Dee. Will recheck tomorrow. If Lipase is more elevated will stop clear liquid diet and return to NPO. Patient may need a few more days in the hospital before improvement. (2) Recurrent pancreatitis Problem Text: Patient is having recurrent episodes of pancreatitis with a past month. Approximately 4 times including this visit. Alcohol is a common cause of pancreatitis. However, patient does not admit to drinking regular basis. Did have a few drinks socially in [place] when she was on leave. Has not had any alcohol since then. This makes this less likely a cause. Gallstones or another common cause of pancreatitis. Liver ultrasound was performed and was read as an essentially negative right upper quadrant ultrasound. This makes this less likely. Different medications can cause pancreatitis. However the only medication patient takes regularly prior to previous month was levothyroxine. This is not a common medication to cause pancreatitis. Hypertriglyceridemia be potential cause. This has not been checked on this admission and was checked via lab this morning. Patient's fasting triglycerides are 61. This makes this less likely. C-reactive protein is trending down. Cause at this time is unknown. Patient does have a pseuodcyst but per Dr. Dee's recommendations is unlikely to be the cause. Approximately 2.[address] scan[address] Per Dr. wilde's recommendation ordering antibody labs to rule out autoimmune hepatitis. Labs pending. General surgery and gastroenterology have been consult. Appreciate their assistance with care of this patient. (3) Transaminitis Problem Text: Liver ultrasound showed no acute findings. Liver enzymes decreased on labs this morning. We'll continue to follow-up as needed. Labs will be ordered for the morning. (4) Hx of papillary thyroid carcinoma Problem Text: Patient has a history of papillary thyroid cancer with thyroidectomy in 2012. Patient takes Synthroid 150 Mcg daily. Continue home dose at this time. Monitor as needed. Plan/VTE VTE Prophylaxis Ordered?: Yes (Lovenox) VS, I&O, 24H, Denzel Vital Signs/I&O Vital Signs Date Time Temp Pulse Resp B/P (MAP) Pulse Ox O2 Delivery O2 Flow Rate FiO2 09/23/16 08:00 98.4 63 16 98/52 (67) 98 Room Air I&O- Last 24 Hours up to 6 AM 09/23/16 06:00 Intake Total 4170 ml Output Total 3400 ml Balance 770 ml Laboratory Data 24H LABS Laboratory Tests 2 09/22/16 14:30: 09/23/16 06:48: Anion Gap 4L, Glomerular Filtration Rate > 60.0, Blood Urea Nitrogen 2L, Creatinine 0.55, Sodium Level 144, Potassium Level 3.5, Chloride Level 112H, Carbon Dioxide Level 28, Calcium Level 8.5, Aspartate Amino Transf (AST/SGOT) 16 , Alanine Aminotransferase (ALT/SGPT) 42, Alkaline Phosphatase 70, Total Bilirubin 0.4, Total Protein 6.1L, Albumin 3.2, Albumin/Globulin Ratio 1.10, Amylase Level 154H, Lipase 1229H CBC/BMP Laboratory Tests 09/23/16 06:48 Red Blood Count 3.25 L, Mean Corpuscular Volume 98.3 H, Mean Corpuscular Hemoglobin 33.7 H, Mean Corpuscular Hemoglobin Concent 34.3, Red Cell Distribution Width 12.7, Calcium Level 8.5, Aspartate Amino Transf (AST/SGOT) 16 , Alanine Aminotransferase (ALT/SGPT) 42, Alkaline Phosphatase 70, Total Bilirubin 0.4, Total Protein 6.1 L, Albumin 3.2 GME ATTESTATION GME ATTESTATION My preceptor for this patient encounter was Dr. Salgado and he was physically present in the building during the encounter and was fully available. As needed , all aspects of the patient interview, examination, medical decision making process, and medical care plan development were reviewed and approved by the preceptor. Preceptor is aware and concurs with the plan as stated in the body of this note and will attest to such by his/her co-signature. YUNG VAN DO Sep 23, 2016 13:02
[2016-09-23 16:15] VITALS: BP 117/71
[2016-09-23 21:00] VITALS: BP 105/59
[2016-09-24 00:30] VITALS: BP 92/58
[2016-09-24] MEDS: D5W/0.45% SODIUM CHLORIDE 1,000 ML IV SCH (03:36)
[2016-09-24 04:00] VITALS: BP 108/55
[2016-09-24] MEDS: LEVOTHYROXINE 150MCG TABLET (0.15MG) PO SCH (06:16)
[2016-09-24 06:32] LABS: MEAN CORPUSCULAR HEMOGLOBIN 33.4 pg (27.0-33.0); MEAN CORPUSCULAR HGB CONC 34.3 g/dl (32.0-36.5); MEAN CORPUSCULAR VOLUME 97.3 fl (80.0-96.0); RED CELL DISTRIBUTION WIDTH 12.9 % (11.5-14.5); WHITE BLOOD COUNT 4.4 K/mm3 (4.0-10.0)
[2016-09-24 06:52] LABS: ALBUMIN 3.4 GM/DL (3.2-5.2); ALBUMIN/GLOBULIN RATIO 1.17 (1.00-1.93); ALKALINE PHOSPHATASE 69 U/L (45-117); ALT/SGPT 38 U/L (12-78); ANION GAP 7 MEQ/L (8-16); AST/SGOT 21 U/L (15-37); BILIRUBIN,TOTAL 0.3 MG/DL (0.2-1.0); BLOOD UREA NITROGEN 1 MG/DL (7-18); CALCIUM LEVEL 8.8 MG/DL (8.5-10.1); CARBON DIOXIDE LEVEL 25 MEQ/L (21-32); CHLORIDE LEVEL 110 MEQ/L (98-107); CREATININE FOR GFR 0.51 MG/DL (0.55-1.02); GLOMERULAR FILTRATION RATE > 60.0 (>60); GLUCOSE, FASTING 102 MG/DL (70-105); POTASSIUM SERUM 3.2 MEQ/L (3.5-5.1); SODIUM LEVEL 142 MEQ/L (136-145); TOTAL PROTEIN 6.3 GM/DL (6.4-8.2)
[2016-09-24] MEDS ORDERED: POTASSIUM CHLORIDE 10 MEQ SR TABLET PO ONE (07:30)
[2016-09-24 08:00] VITALS: BP 115/55
[2016-09-24 08:03] LABS: MAGNESIUM LEVEL 1.8 MG/DL (1.8-2.4)
[2016-09-24] MEDS: PANTOPRAZOLE 40MG TAB (PROTONIX) PO SCH (08:40)
[2016-09-24] MEDS: ENOXAPARIN 40 MG/0.4 ML SYRINGE (J1650) SC SCH (08:41)
[2016-09-24] MEDS: ACETAMINOPHEN TAB 650MG DOSE (2X325MG) PO PRN ×2 (12:16→21:53)
--- NOTE | 2016-09-24 12:56 | IPNPDOC ---
Subjective Date Seen The patient was seen on 09/24/16. Subjective Chief Complaint/HPI The patient is a 26-year-old female admitted with a reason for visit of Pancreatic Pseudocyst. Events since last encounter Patient is feeling about the same today. Denies much change in her pain. It is only taking the pain medication when she needs it. Has been able to get up and walk around. Is tolerating her clear liquid diet. Abdominal pain is about a 3 out of 10 today. Reports having some liquid diarrhea proximally 4-5 times over the night and once this morning. Denies any hematochezia or melena. Describes it as brown liquid. Constitutional: Denies: Chills, Fever Eyes: Denies: Pain, Vision change ENT: Denies: Head Aches, Ear Pain Skin: Denies: Rash, Lesions Pulmonary: Denies: Dyspnea, Cough Cardiovascular: Denies: Chest Pain, Palpitations Gastrointestinal: Reports: Nausea, Abdominal Pain (patient is a 3 out of 10. About the same as previous.), Diarrhea (about 5 loose stools last night. Describes as liquid. denies hematochezia, melena. ), Other Symptoms, Denies: Vomiting Genitourinary: Denies: Dysuria, Frequency, Incontinence Hematologic: Denies: Bleeding Excessively Endocrine: Denies: Polyphagia Neurological: Denies: Weakness, Numbness, Change in speech, Confusion Psych: Reports: Mood Normal Objective Physical Examination General Exam: Positive: Alert, Cooperative, No Acute Distress Eye Exam: Positive: PERRLA, Conjunctiva & lids normal, EOMI, Negative: Sclera icteric ENT Exam: Positive: Atraumatic, Mucous membr. moist/pink Neck Exam: Positive: Supple, Negative: JVD Chest Exam: Positive: Clear to auscultation, Normal air movement Heart Exam: Positive: Rate Normal, Normal S1, Normal S2 Abdomen Exam: Positive: Normal bowel sounds, Soft, Tenderness, Other ( Tenderness and some pain to palpation left upper quadrant. No guarding, rebound tenderness, or rigidity noted) Extremity Exam: Positive: Normal pulses (radial pulse 2/4 bilaterally), Negative: Edema, Tenderness, Swelling Neuro Exam: Positive: Normal Speech Psych Exam: Positive: Mood NL, Oriented x 3 Assessment /Plan Problems (1) Pancreatic pseudocyst Status: Acute Problem Text: Surgery had been counseled for this patient. Per Dr. Bunn, the patient does not need surgery at this time. Appreciate his assistance in management of this patient at this time. Continue nonsurgical management. Discussed patient with Dr. Dee. Patient was originally scheduled to see Dr. Dee in outpatient setting tomorrow. He agreed to see the patient. Consult has been placed. Discussed with Dr. Dee's morning. He recommends performing an MRCP as well as consulting with Dr. Peace interventional radiologist. There are 2.8 cm cyst should be able to resolve on its own. Dr. Wadsworth may be able to perform a percutaneous drainage of the cyst if needed. Appreciate his assistance in management of this patient. Discussed patient with Dr. Wadsworth, interventional radiologist. He recommends if cyst needs drain to perform via endoscopy ultrasound. That if performed through percutaneous could be a prolonged efforts and may be draining for some time such as months to years. This would depend on what they find upon insertion. Also consulted to discuss case with Dr. wilde in [place]. He is a fire patroller. If a endoscopic ultrasound was considered. He would be able to perform. Discussed with patient with him and he believes to point centimeter should resolve on its own. To continue medical management at this time. He recommended to see if patient has possible underlying autoimmune pancreatitis and to check antibodies for this. Ordering IgG, IgG4, and SOHAN. The upon results of the MRCP if a stone is found can refer for ERCP or see outpatient if there is no stone. Patient is currently on ibuprofen and Tylenol as needed for [id number] pain. Patient has morphine every 6 hours 2 mg IV for severe pain. Changing patient to every 8 hours for morphine as needed. Continue patient on Zofran as needed. Patient did use Zofran twice yesterday for nausea. Patient is currently clear liquid diet. No vomiting. Some nausea. Patient reports some reflux symptoms, happening on and off for past month. Patient is receiving D5W half-normal saline due to patient's low glucose yesterday morning. Continuing fluids today. Lipase plateaued today. Discussed with Dr. Dee. Will recheck tomorrow. The patient's pain is still tolerable advancing her diet today. Advancing to a low-fat diet. Patient is able to tolerate this possible discharge tomorrow. (2) Recurrent pancreatitis Problem Text: Patient is having recurrent episodes of pancreatitis with a past month. Approximately 4 times including this visit. Alcohol is a common cause of pancreatitis. However, patient does not admit to drinking regular basis. Did have a few drinks socially in [place] when she was on leave. Has not had any alcohol since then. This makes this less likely a cause. Gallstones or another common cause of pancreatitis. Liver ultrasound was performed and was read as an essentially negative right upper quadrant ultrasound. This makes this less likely. Different medications can cause pancreatitis. However the only medication patient takes regularly prior to previous month was levothyroxine. This is not a common medication to cause pancreatitis. Hypertriglyceridemia be potential cause. This has not been checked on this admission and was checked via lab this morning. Patient's fasting triglycerides are 61. This makes this less likely. C-reactive protein is trending down. Cause at this time is unknown. Patient does have a pseuodcyst but per Dr. Dee's recommendations is unlikely to be the cause. Approximately 2.[address] scan[address] Per Dr. wilde's recommendation ordering antibody labs to rule out autoimmune hepatitis. SOHAN negative. Labs pending. General surgery and gastroenterology have been consult. Appreciate their assistance with care of this patient. (3) Transaminitis Status: Resolved Problem Text: Liver ultrasound showed no acute findings. Liver enzymes within normal limits. We'll continue to follow-up as needed. Labs will be ordered for the morning. (4) Hx of papillary thyroid carcinoma Problem Text: Patient has a history of papillary thyroid cancer with thyroidectomy in 2012. Patient takes Synthroid 150 Mcg daily. Continue home dose at this time. Monitor as needed. (5) Diarrhea Problem Text: Patient reported having a loose stool previous day. Overnight patient had approximately 5 watery stools. Has hematochezia or melena. GI panel has been ordered as well as a Clostridium difficile. Believe this is from fluid hydration and oral liquids. Ruling out infectious cause. Patient does have a normal white blood cells. Monitor as needed. Plan/VTE VTE Prophylaxis Ordered?: Yes (Lovenox) VS, I&O, 24H, Fishbone Vital Signs/I&O Vital Signs Date Time Temp Pulse Resp B/P (MAP) Pulse Ox O2 Delivery O2 Flow Rate FiO2 09/24/16 08:00 99.0 51 16 115/55 (75) 100 Room Air I&O- Last 24 Hours up to 6 AM 09/24/16 06:00 Intake Total 3708 ml Output Total 3350 ml Balance 358 ml Laboratory Data 24H LABS Laboratory Tests 2 09/24/16 05:54: Anion Gap 7L, Glomerular Filtration Rate > 60.0, Blood Urea Nitrogen 1L, Creatinine 0.51L, Sodium Level 142, Potassium Level 3.2L, Chloride Level 110H, Carbon Dioxide Level 25, Calcium Level 8.8, Aspartate Amino Transf (AST/SGOT) 21 , Alanine Aminotransferase (ALT/SGPT) 38, Alkaline Phosphatase 69, Total Bilirubin 0.3, Total Protein 6.3L, Albumin 3.4, Magnesium Level 1.8, Albumin/ Globulin Ratio 1.17, Lipase 1324H CBC/BMP Laboratory Tests 09/24/16 05:54 Red Blood Count 3.21 L, Mean Corpuscular Volume 97.3 H, Mean Corpuscular Hemoglobin 33.4 H, Mean Corpuscular Hemoglobin Concent 34.3, Red Cell Distribution Width 12.9, Calcium Level 8.8, Aspartate Amino Transf (AST/SGOT) 21 , Alanine Aminotransferase (ALT/SGPT) 38, Alkaline Phosphatase 69, Total Bilirubin 0.3, Total Protein 6.3 L, Albumin 3.4 GME ATTESTATION GME ATTESTATION My preceptor for this patient encounter was Dr. Salgado and he was physically present in the building during the encounter and was fully available. As needed , all aspects of the patient interview, examination, medical decision making process, and medical care plan development were reviewed and approved by the preceptor. Preceptor is aware and concurs with the plan as stated in the body of this note and will attest to such by his/her co-signature. YUNG VAN DO Sep 24, 2016 12:56
[2016-09-24 14:11] LABS: IgG SERUM (part of Subclasses) 831 mg/dL (700-1600); IgG Subclass 1 424 mg/dL (248-810); IgG Subclass 2 307 mg/dL (130-555); IgG Subclass 3 49 mg/dL (15-102); IgG Subclass 4 28 mg/dL (2-96)
[2016-09-24 16:00] VITALS: BP 114/64
[2016-09-24] MEDS ORDERED: SLF 3 ML SYR IV PRN (16:45)
[2016-09-24] MEDS: SLF 3 ML SYR IV SCH (20:41)
[2016-09-25] VITALS: BP 115/54
[2016-09-25] MEDS: SLF 3 ML SYR IV SCH ×3 (06:00→19:57)
[2016-09-25] MEDS: LEVOTHYROXINE 150MCG TABLET (0.15MG) PO SCH (06:00)
[2016-09-25 06:37] LABS: MEAN CORPUSCULAR HEMOGLOBIN 33.7 pg (27.0-33.0); MEAN CORPUSCULAR HGB CONC 34.5 g/dl (32.0-36.5); MEAN CORPUSCULAR VOLUME 97.6 fl (80.0-96.0); RED CELL DISTRIBUTION WIDTH 12.8 % (11.5-14.5); WHITE BLOOD COUNT 4.1 K/mm3 (4.0-10.0)
[2016-09-25 07:03] LABS: ALBUMIN 3.4 GM/DL (3.2-5.2); ALBUMIN/GLOBULIN RATIO 1.21 (1.00-1.93); ALKALINE PHOSPHATASE 69 U/L (45-117); ALT/SGPT 34 U/L (12-78); ANION GAP 7 MEQ/L (8-16); AST/SGOT 14 U/L (15-37); BILIRUBIN,TOTAL 0.3 MG/DL (0.2-1.0); BLOOD UREA NITROGEN 5 MG/DL (7-18); CALCIUM LEVEL 8.8 MG/DL (8.5-10.1); CARBON DIOXIDE LEVEL 26 MEQ/L (21-32); CHLORIDE LEVEL 112 MEQ/L (98-107); CREATININE FOR GFR 0.52 MG/DL (0.55-1.02); GLOMERULAR FILTRATION RATE > 60.0 (>60); GLUCOSE, FASTING 85 MG/DL (70-105); POTASSIUM SERUM 3.5 MEQ/L (3.5-5.1); SODIUM LEVEL 145 MEQ/L (136-145); TOTAL PROTEIN 6.2 GM/DL (6.4-8.2)
[2016-09-25 08:00] VITALS: BP 128/68
[2016-09-25] MEDS: PANTOPRAZOLE 40MG TAB (PROTONIX) PO SCH (08:54)
[2016-09-25] MEDS: ENOXAPARIN 40 MG/0.4 ML SYRINGE (J1650) SC SCH (08:55)
--- NOTE | 2016-09-25 11:11 | IPNPDOC ---
Subjective Date Seen The patient was seen on 09/25/16. Subjective Chief Complaint/HPI The patient is a 26-year-old female admitted with a reason for visit of Pancreatic Pseudocyst. General: Denies: ROS Unobtainable, Chills, Night Sweats, Fatigue, Malaise, Normal Appetite, Other Symptoms Constitutional: Denies: Chills, Fever, Malaise, Night Sweats, Weakness, Fatigue , Weight Loss, Lethargy, Other Eyes: Denies: Pain, Vision change, Conjunctivae inflammation, Eyelid inflammation, Redness, Other ENT: Denies: Head Aches, Ear Pain, Dysphagia, Sinus Congestion, Post Nasal Drip , Sore Throat, Epistaxis, Other Symptoms Skin: Denies: Rash, Lesions, Jaundice, Bruising, Itching, Dry, Breakdown, Nail Changes, Other Pulmonary: Denies: Dyspnea, Cough, Pleuritic Chest Pain, Other Symptoms Cardiovascular: Denies: Chest Pain, Palpitations, Orthopnea, Paroxysmal Noc. Dyspnea, Edema, Lt Headedness, Other Symptoms Gastrointestinal: Reports: Abdominal Pain (mild abd pain ), Denies: Nausea, Vomiting, Diarrhea, Constipation, Melena, Hematochezia, Other Symptoms Objective Physical Examination General Exam: Positive: Alert, Cooperative, No Acute Distress Eye Exam: Positive: PERRLA, Conjunctiva & lids normal, EOMI, Negative: Sclera icteric ENT Exam: Positive: Atraumatic, Mucous membr. moist/pink Neck Exam: Positive: Supple, Negative: JVD Chest Exam: Positive: Clear to auscultation, Normal air movement Heart Exam: Positive: Rate Normal, Normal S1, Normal S2 Abdomen Exam: Positive: Normal bowel sounds, Soft, Tenderness (mild tenderness LUQ), Other Extremity Exam: Positive: Other (RUE antecubital fossa tender, erythematous), Negative: Edema Neuro Exam: Positive: Normal Speech Psych Exam: Positive: Oriented x 3 Assessment /Plan Problems (1) Pancreatic pseudocyst Status: Chronic Problem Text: Autoimmune workup for pancreatitis unremarkable at this time. Lipase almost doubled from yesterday - started diet yesterday. Reverted to [facility] today, trend lipase, follow up GI Dr. Dee tomorrow. Likely re-image with CT abd tomorrow. Possible cyst gastrostomy for pseudocyst, by GI in [facility] Dr. Wilde. Surgery had been counseled for this patient. Per Dr. Bunn, the patient does not need surgery at this time. Appreciate his assistance in management of this patient at this time. Continue nonsurgical management. Discussed patient with Dr. Dee. Patient was originally scheduled to see Dr. Dee in outpatient setting tomorrow. He agreed to see the patient. Consult has been placed. Discussed with Dr. Dee's morning. He recommends performing an MRCP as well as consulting with Dr. Peace interventional radiologist. There are 2.8 cm cyst should be able to resolve on its own. Dr. Wadsworth may be able to perform a percutaneous drainage of the cyst if needed. Appreciate his assistance in management of this patient. Discussed patient with Dr. Wadsworth, interventional radiologist. He recommends if cyst needs drain to perform via endoscopy ultrasound. That if performed through percutaneous could be a prolonged efforts and may be draining for some time such as months to years. This would depend on what they find upon insertion. Also consulted to discuss case with Dr. wilde in [place]. He is a check pilot. If a endoscopic ultrasound was considered. He would be able to perform. Discussed with patient with him and he believes to point centimeter should resolve on its own. To continue medical management at this time. He recommended to see if patient has possible underlying autoimmune pancreatitis and to check antibodies for this. (2) Recurrent pancreatitis Problem Text: Patient is having recurrent episodes of pancreatitis with a past month. Approximately 4 times including this visit. Alcohol is a common cause of pancreatitis. However, patient does not admit to drinking regular basis. Did have a few drinks socially in [place] when she was on leave. Has not had any alcohol since then. This makes this less likely a cause. Gallstones or another common cause of pancreatitis. Liver ultrasound was performed and was read as an essentially negative right upper quadrant ultrasound. This makes this less likely. Different medications can cause pancreatitis. However the only medication patient takes regularly prior to previous month was levothyroxine. This is not a common medication to cause pancreatitis. Hypertriglyceridemia be potential cause. This has not been checked on this admission and was checked via lab this morning. Patient's fasting triglycerides are 61. This makes this less likely. C-reactive protein is trending down. Cause at this time is unknown. Patient does have a pseuodcyst but per Dr. Dee's recommendations is unlikely to be the cause. Approximately 2.[address] scan[address] Per Dr. wilde's recommendation ordering antibody labs to rule out autoimmune hepatitis. SOHAN negative. Labs pending. General surgery and gastroenterology have been consult. Appreciate their assistance with care of this patient. (3) Transaminitis Status: Resolved Problem Text: Liver ultrasound showed no acute findings. Liver enzymes within normal limits. We'll continue to follow-up as needed. Labs will be ordered for the morning. (4) Hx of papillary thyroid carcinoma Problem Text: Patient has a history of papillary thyroid cancer with thyroidectomy in 2012. Patient takes Synthroid 150 Mcg daily. Continue home dose at this time. Monitor as needed. (5) Diarrhea Problem Text: Patient reported having a loose stool previous day. Overnight patient had approximately 5 watery stools. Has hematochezia or melena. GI panel has been ordered as well as a Clostridium difficile. Believe this is from fluid hydration and oral liquids. Ruling out infectious cause. Patient does have a normal white blood cells. Monitor as needed. Plan/VTE VTE Prophylaxis Ordered?: Yes (Lovenox) VS, I&O, 24H, Fishbone Vital Signs/I&O Vital Signs Date Time Temp Pulse Resp B/P (MAP) Pulse Ox O2 Delivery O2 Flow Rate FiO2 09/25/16 08:00 98.2 76 18 128/68 (88) 98 Room Air I&O- Last 24 Hours up to 6 AM 09/25/16 06:00 Intake Total 2708 ml Output Total 2300 ml Balance 408 ml Laboratory Data 24H LABS Laboratory Tests 2 09/25/16 06:22: Anion Gap 7L, Glomerular Filtration Rate > 60.0, Blood Urea Nitrogen 5#L, Creatinine 0.52L, Sodium Level 145, Potassium Level 3.5, Chloride Level 112H, Carbon Dioxide Level 26, Calcium Level 8.8, Aspartate Amino Transf (AST/SGOT) 14L, Alanine Aminotransferase (ALT/SGPT) 34, Alkaline Phosphatase 69, Total Bilirubin 0.3, Total Protein 6.2L, Albumin 3.4, Albumin/Globulin Ratio 1.21, Lipase 2323H CBC/BMP Laboratory Tests 09/25/16 06:22 Red Blood Count 3.30 L, Mean Corpuscular Volume 97.6 H, Mean Corpuscular Hemoglobin 33.7 H, Mean Corpuscular Hemoglobin Concent 34.5, Red Cell Distribution Width 12.8, Calcium Level 8.8, Aspartate Amino Transf (AST/SGOT) 14 L, Alanine Aminotransferase (ALT/SGPT) 34, Alkaline Phosphatase 69, Total Bilirubin 0.3, Total Protein 6.2 L, Albumin 3.4 Microbiology Microbiology 09/24/16 Gastrointestinal Tract Panel (PCR) - Final, Complete YUNG LE MD Sep 25, 2016 11:11
--- NOTE | 2016-09-25 13:15 | REP ---
Right upper extremity duplex venous ultrasound: History: Evaluate DVT. No comparison study. Findings: The right internal jugular, subclavian, axillary, brachial and basilic veins are anechoic and compressible with normal color and pulsed Doppler signal. The distal segment of the right cephalic vein contains occlusive thrombus over a short segment just above the antecubital fossa. Impression: A small zone of occlusive thrombosis is seen in the distal cephalic vein. No other evidence of right upper extremity venous thrombosis. Signed by Shon Hess MD 09/25/2016 01:39 P
[2016-09-25 16:07] VITALS: BP 108/68
--- NOTE | 2016-09-25 21:43 | CR ---
DATE OF CONSULTATION: 09/23/2016 This is a 26-year-old white female who was admitted to [facility] ([facility]) on (please clarify). REASON FOR CONSULTATION: Several episodes of pancreatitis and a pancreatic pseudocyst. HISTORY: A 26-year-old white female with a known history of papillary thyroid cancer, status post total thyroidectomy in 2012, on thyroid replacement therapy. She was apparently several months ago in [place], had an episode of severe abdominal pain, was admitted to the hospital with acute pancreatitis. Studies in [place] apparently did not reveal any particular etiology, though there was a remote history of alcohol intake at that time. The patient now presents to [facility] with several days, approximately 2-3 days prior to admission of abdominal pain. No nausea, vomiting, fevers, night sweats or shaking chills. No change in bowel habits. No hematemesis. No apparent involuntary weight loss. The patient's pain was located in the left upper quadrant with radiation straight though to her back. Diagnostic workup at the emergency room: CT showed findings compatible with pancreatitis with a 2.8 cm pseudocyst in the tail of her pancreas. The patient has been hospitalized ever since, and has now been started on clear liquid diet. MEDICATIONS AT HOME: Synthroid 150 mcg daily. ALLERGIES: CEFACLOR. PAST MEDICAL HISTORY. As above. PAST SURGICAL HISTORY: Status post thyroidectomy 2012, and previous tonsillectomy. FAMILY HISTORY: Noncontributory to the above problems. SOCIAL HISTORY: The patient denies any cigarette smoking, alcohol per the patient is only occasionally, and no alcohol intake apparently after this last admission. REVIEW OF SYSTEMS: 10-point review of systems was negative to the above problem. PHYSICAL EXAMINATION: GENERAL: This is a well-developed, well-nourished white female in no obvious acute distress. Appears stated age. CHEST: Clear to auscultation and percussion. CARDIOVASCULAR: Cardiovascular exam showed regular rhythm. No murmurs or gallops. Normal physiological split . S1, S2. ABDOMEN: Soft. Positive left upper quadrant tenderness. No hepatosplenomegaly. No rebound. Her bowel sounds are sounds positive. EXTREMITIES: No signs of edema. Ike's negative. LABORATORY DATA: Laboratory studies on admission show a white count of 3600, hemoglobin and hematocrit of 10 and 30.5. Chemistry was normal except for admission lipase of 788. Admission lipase was 2241, and amylase was 368. The rest of the liver functions were normal. Renal functions normal and electrolytes were essentially normal. ANALYSIS: Possible recurrent pancreatitis with a small pancreatic pseudocyst. At the present time, I do not feel any intervention is required in that pseudocyst that is 2.5 cm in size. If a cyst is less than 6 cm, it will resolve spontaneously over the next 6-8 weeks. Recommend would keep patient on clear liquids to full liquid diet. Avoid a high-fat content diet. The patient should have followup CT scan in about six weeks to assess resolution of this pancreatic pseudocyst. The patient should be also advised to avoid alcohol intake at this current time. Plan outlined as above.
[2016-09-26] VITALS: BP 99/54
[2016-09-26] MEDS: LEVOTHYROXINE 150MCG TABLET (0.15MG) PO SCH (06:00)
[2016-09-26] MEDS: SLF 3 ML SYR IV SCH (06:00)
[2016-09-26 07:45] LABS: MEAN CORPUSCULAR HEMOGLOBIN 33.4 pg (27.0-33.0); MEAN CORPUSCULAR HGB CONC 33.9 g/dl (32.0-36.5); MEAN CORPUSCULAR VOLUME 98.7 fl (80.0-96.0); WHITE BLOOD COUNT 4.7 K/mm3 (4.0-10.0)
[2016-09-26 08:00] VITALS: BP 94/48
[2016-09-26 08:13] LABS: ALBUMIN 3.5 GM/DL (3.2-5.2); ALBUMIN/GLOBULIN RATIO 1.06 (1.00-1.93); ALKALINE PHOSPHATASE 71 U/L (45-117); ALT/SGPT 31 U/L (12-78); ANION GAP 6 MEQ/L (8-16); AST/SGOT 16 U/L (15-37); BILIRUBIN,TOTAL 0.3 MG/DL (0.2-1.0); BLOOD UREA NITROGEN 5 MG/DL (7-18); CALCIUM LEVEL 8.6 MG/DL (8.5-10.1); CARBON DIOXIDE LEVEL 28 MEQ/L (21-32); CHLORIDE LEVEL 106 MEQ/L (98-107); CREATININE FOR GFR 0.61 MG/DL (0.55-1.02); GLOMERULAR FILTRATION RATE > 60.0 (>60); GLUCOSE, FASTING 84 MG/DL (70-105); POTASSIUM SERUM 3.4 MEQ/L (3.5-5.1); SODIUM LEVEL 140 MEQ/L (136-145); TOTAL PROTEIN 6.8 GM/DL (6.4-8.2)
[2016-09-26] MEDS: PANTOPRAZOLE 40MG TAB (PROTONIX) PO SCH (09:17)
[2016-09-26] MEDS: ENOXAPARIN 40 MG/0.4 ML SYRINGE (J1650) SC SCH (09:18)
--- NOTE | 2016-09-26 10:25 | IPNPDOC ---
Subjective Date Seen The patient was seen on 09/26/16. Subjective Chief Complaint/HPI The patient is a 26-year-old female admitted with a reason for visit of Pancreatic Pseudocyst. General: Denies: ROS Unobtainable, Chills, Night Sweats, Fatigue, Malaise, Normal Appetite, Other Symptoms Constitutional: Denies: Chills, Fever, Malaise, Night Sweats, Weakness, Fatigue , Weight Loss, Lethargy, Other Eyes: Denies: Pain, Vision change, Conjunctivae inflammation, Eyelid inflammation, Redness, Other ENT: Denies: Head Aches, Ear Pain, Dysphagia, Sinus Congestion, Post Nasal Drip , Sore Throat, Epistaxis, Other Symptoms Skin: Denies: Rash, Lesions, Jaundice, Bruising, Itching, Dry, Breakdown, Nail Changes, Other Pulmonary: Denies: Dyspnea, Cough, Pleuritic Chest Pain, Other Symptoms Cardiovascular: Denies: Chest Pain, Palpitations, Orthopnea, Paroxysmal Noc. Dyspnea, Edema, Lt Headedness, Other Symptoms Gastrointestinal: Denies: Nausea, Vomiting, Abdominal Pain, Diarrhea, Constipation, Melena, Hematochezia, Other Symptoms Genitourinary: Denies: Dysuria, Frequency, Incontinence, Hematuria, Retention, Other Symptoms Objective Physical Examination General Exam: Positive: Alert, Cooperative, No Acute Distress Eye Exam: Positive: PERRLA, Conjunctiva & lids normal, EOMI, Negative: Sclera icteric ENT Exam: Positive: Atraumatic, Mucous membr. moist/pink Neck Exam: Positive: Supple, Negative: JVD Chest Exam: Positive: Clear to auscultation, Normal air movement Heart Exam: Positive: Rate Normal, Normal S1, Normal S2 Abdomen Exam: Positive: Normal bowel sounds, Soft, Other, Negative: Tenderness Extremity Exam: Positive: Other (RUE antecubital fossa tender), Negative: Edema Neuro Exam: Positive: Normal Speech Psych Exam: Positive: Oriented x 3 Assessment /Plan Problems (1) Pancreatic pseudocyst Status: Chronic Problem Text: Autoimmune workup for pancreatitis unremarkable at this time. Lipase still trending up - repeat CT - if no changes will advance diet. D/w GI , assistance appreciated. Possible cyst gastrostomy for pseudocyst, by GI in [place]. Surgery had been counseled for this patient. Per Dr. Bunn, the patient does not need surgery at this time. Appreciate his assistance in management of this patient at this time. Continue nonsurgical management. Discussed patient with Dr. Dee. Patient was originally scheduled to see Dr. Dee in outpatient setting tomorrow. He agreed to see the patient. Consult has been placed. Discussed with Dr. Dee's morning. He recommends performing an MRCP as well as consulting with Dr. Peace interventional radiologist. There are 2.8 cm cyst should be able to resolve on its own. Dr. Wadsworth may be able to perform a percutaneous drainage of the cyst if needed. Appreciate his assistance in management of this patient. Discussed patient with Dr. Wadsworth, interventional radiologist. He recommends if cyst needs drain to perform via endoscopy ultrasound. That if performed through percutaneous could be a prolonged efforts and may be draining for some time such as months to years. This would depend on what they find upon insertion. Also consulted to discuss case with Dr. wilde in [place]. He is a door operator. If a endoscopic ultrasound was considered. He would be able to perform. Discussed with patient with him and he believes to point centimeter should resolve on its own. To continue medical management at this time. He recommended to see if patient has possible underlying autoimmune pancreatitis and to check antibodies for this. (2) Recurrent pancreatitis Problem Text: Patient is having recurrent episodes of pancreatitis with a past month. Approximately 4 times including this visit. Alcohol is a common cause of pancreatitis. However, patient does not admit to drinking regular basis. Did have a few drinks socially in [place] when she was on leave. Has not had any alcohol since then. This makes this less likely a cause. Gallstones or another common cause of pancreatitis. Liver ultrasound was performed and was read as an essentially negative right upper quadrant ultrasound. This makes this less likely. Different medications can cause pancreatitis. However the only medication patient takes regularly prior to previous month was levothyroxine. This is not a common medication to cause pancreatitis. Hypertriglyceridemia be potential cause. This has not been checked on this admission and was checked via lab this morning. Patient's fasting triglycerides are 61. This makes this less likely. C-reactive protein is trending down. Cause at this time is unknown. Patient does have a pseuodcyst but per Dr. Dee's recommendations is unlikely to be the cause. Approximately 2.[address] scan[address] Per Dr. wilde's recommendation ordering antibody labs to rule out autoimmune hepatitis. SOHAN negative. Labs pending. General surgery and gastroenterology have been consult. Appreciate their assistance with care of this patient. (3) Transaminitis Status: Resolved Problem Text: Liver ultrasound showed no acute findings. Liver enzymes within normal limits. We'll continue to follow-up as needed. Labs will be ordered for the morning. (4) Hx of papillary thyroid carcinoma Problem Text: Patient has a history of papillary thyroid cancer with thyroidectomy in 2012. Patient takes Synthroid 150 Mcg daily. Continue home dose at this time. Monitor as needed. (5) Diarrhea Problem Text: Patient reported having a loose stool previous day. Overnight patient had approximately 5 watery stools. Has hematochezia or melena. GI panel has been ordered as well as a Clostridium difficile. Believe this is from fluid hydration and oral liquids. Ruling out infectious cause. Patient does have a normal white blood cells. Monitor as needed. Plan/VTE VTE Prophylaxis Ordered?: Yes (Lovenox) Plan Diet: Continue Current Diagnostics: CT VS, I&O, 24H, Fishbone Vital Signs/I&O Vital Signs Date Time Temp Pulse Resp B/P (MAP) Pulse Ox O2 Delivery O2 Flow Rate FiO2 09/26/16 08:00 98.3 64 18 94/48 (63) 98 Room Air I&O- Last 24 Hours up to 6 AM 09/26/16 05:59 Intake Total 2460 ml Output Total 3100 ml Balance -640 ml Laboratory Data 24H LABS Laboratory Tests 2 09/26/16 07:08: Anion Gap 6L, Glomerular Filtration Rate > 60.0, Blood Urea Nitrogen 5L, Creatinine 0.61, Sodium Level 140, Potassium Level 3.4L, Chloride Level 106, Carbon Dioxide Level 28, Calcium Level 8.6, Aspartate Amino Transf (AST/SGOT) 16 , Alanine Aminotransferase (ALT/SGPT) 31, Alkaline Phosphatase 71, Total Bilirubin 0.3, Total Protein 6.8, Albumin 3.5, Albumin/Globulin Ratio 1.06, Lipase 2932H CBC/BMP Laboratory Tests 09/26/16 07:08 Red Blood Count 3.34 L, Mean Corpuscular Volume 98.7 H, Mean Corpuscular Hemoglobin 33.4 H, Mean Corpuscular Hemoglobin Concent 33.9, Red Cell Distribution Width 13.0, Calcium Level 8.6, Aspartate Amino Transf (AST/SGOT) 16 , Alanine Aminotransferase (ALT/SGPT) 31, Alkaline Phosphatase 71, Total Bilirubin 0.3, Total Protein 6.8, Albumin 3.5 Microbiology Microbiology 09/24/16 Gastrointestinal Tract Panel (PCR) - Final, Complete YUNG LE MD Sep 26, 2016 10:25
[2016-09-26 16:00] VITALS: BP 110/65
[2016-09-26 20:00] VITALS: BP 118/63
[2016-09-27] VITALS: BP 112/62
--- NOTE | 2016-09-27 03:28 | REP ---
Clinical: Abdominal pain and elevated lipase levels with history of pancreatitis and pseudocyst. Comparison: 09/20/2016. Findings: Lung bases are clear. Liver, spleen, gallbladder, bilateral adrenal glands and kidneys are normal for noncontrast evaluation. The pancreas demonstrates enlargement to the distal body/tail and includes a 3.6 cm presumed pseudocyst which is increased from prior examination. The enteric system is without obstruction or acute inflammatory process. Pelvis demonstrates collapsed bladder and age-appropriate uterus/adnexa. No pelvic fluid or ascites. No free air. No obvious adenopathy. Surrounding musculoskeletal structures are intact. Impression: 3.6 cm presumed pseudocyst in the distal pancreatic body/tail which appears slightly increased in size from prior examination and may reflect continued active acute pancreatitis. Signed by Jean Paul Renteria MD 09/27/2016 03:19 A
[2016-09-27] MEDS: LEVOTHYROXINE 150MCG TABLET (0.15MG) PO SCH (06:06)
[2016-09-27 07:02] LABS: MEAN CORPUSCULAR HEMOGLOBIN 33.2 pg (27.0-33.0); MEAN CORPUSCULAR HGB CONC 33.6 g/dl (32.0-36.5); MEAN CORPUSCULAR VOLUME 98.8 fl (80.0-96.0); WHITE BLOOD COUNT 4.6 K/mm3 (4.0-10.0)
[2016-09-27 07:30] LABS: ALBUMIN 3.5 GM/DL (3.2-5.2); ALBUMIN/GLOBULIN RATIO 1.25 (1.00-1.93); ALKALINE PHOSPHATASE 66 U/L (45-117); ALT/SGPT 28 U/L (12-78); ANION GAP 7 MEQ/L (8-16); AST/SGOT 12 U/L (15-37); BILIRUBIN,TOTAL 0.3 MG/DL (0.2-1.0); BLOOD UREA NITROGEN 10 MG/DL (7-18); CALCIUM LEVEL 8.9 MG/DL (8.5-10.1); CARBON DIOXIDE LEVEL 27 MEQ/L (21-32); CHLORIDE LEVEL 109 MEQ/L (98-107); CREATININE FOR GFR 0.55 MG/DL (0.55-1.02); GLOMERULAR FILTRATION RATE > 60.0 (>60); GLUCOSE, FASTING 87 MG/DL (70-105); POTASSIUM SERUM 3.7 MEQ/L (3.5-5.1); SODIUM LEVEL 143 MEQ/L (136-145); TOTAL PROTEIN 6.3 GM/DL (6.4-8.2)
[2016-09-27 08:00] VITALS: BP 90/53
[2016-09-27] MEDS: ENOXAPARIN 40 MG/0.4 ML SYRINGE (J1650) SC SCH (09:27)
[2016-09-27] MEDS: PANTOPRAZOLE 40MG TAB (PROTONIX) PO SCH (09:27)
--- NOTE | 2016-09-28 12:15 | DSES ---
DATE OF ADMISSION: 09/23/2016 DATE OF DISCHARGE: 09/27/2016 SPECIALISTS INVOLVED IN CARE: Dr. Dee. No complications during her stay. No procedures performed during her stay. DISCHARGE DIAGNOSES: Recurrent pancreatitis. Pancreatic pseudocyst. Transaminitis. History of papillary thyroid carcinoma with resultant hypothyroidism, diarrhea. SUMMARY OF HOSPITALIZATION: This is a 26-year-old who presented with abdominal pain, previous history of pancreatitis diagnosed around a month ago in [place], [place]. She was diagnosed with a pancreatic pseudocyst. She went home on antibiotics and morphine. In our emergency department, she had pancreatitis and a pseudocyst. Patient was admitted to the hospitalist service, was seen by general surgery and Dr. Dee. Had gallbladder ultrasound, CT of the abdomen, abdominal MRI with no evidence of cholelithiasis or choledocholithiasis. She symptomatically improved, was able to tolerate diet. Lipase remained elevated. The case was discussed with Dr. Dee. He plans to have the patient followup as an outpatient with him as needed. On day of discharge, patient has tolerated solid food, is feeling well. Has had elevated temperature without fever and no elevation of white cell count and feels ready to go home. Breathing is symmetrical and rested. Heart: Regular rate and rhythm. Abdomen: Soft doughy, nontender. White cell count 4.6, hemoglobin 11.2, platelets 204. BUN 10, creatinine 0.55. DISCHARGE INSTRUCTIONS: Followup with Dr. Barajas in [address] Dee's office for followup instructions. Activity is as tolerated. Low fat diet. Continue Tylenol as needed for pain. Synthroid 150 mcg by mouth daily. Morphine sulfate at bedside as needed for pain and Zofran as needed for nausea. MTDD
== END 2016-09-27 10:32 | disposition home or self-care (01) | DRG 439 ==
LOC: M ED 11:51 → M ED INP 19:28 → M PED 20:42 → OBSVTOIN 09-23 15:20
PROVIDERS: ADMIT Internal Medicine; ATTEND Internal Medicine
DX: K86.1 Other chronic pancreatitis (principal); K86.3 Pseudocyst of pancreas; E89.0 Postprocedural hypothyroidism; Z85.850 Personal history of malignant neoplasm of thyroid; Z79.899 Other long term (current) drug therapy; Z88.1 Allergy status to other antibiotic agents; R74.0 Nonspecific elevation of levels of transaminase and lactic acid dehydrogenase [LDH]; R19.7 Diarrhea, unspecified

== ENCOUNTER → 2016-10-31 | Outpatient (CLI) | payer OTHER ==
[~2016-10-31] MED LIST: ACET1TAB17 PO; MORP15TA2 PO; ONDA4TAB6 PO; SYNT150T PO; ZOFR20TA PO
--- NOTE | 2016-10-31 12:17 | REP ---
MRCP: MRCP exam is accomplished utilizing multiple heavily T2-weighted sequences in the axial and coronal planes. MIP reconstruction images are performed. Comparison made with prior study of 09/22/2016. There is no intrahepatic or extrahepatic biliary dilatation. Common bile duct has a maximum diameter of 6 mm. No filling defect or stricture is seen of the common bile duct. The pancreatic duct is normal in caliber. Oval complex pancreatic pseudocyst is again seen in the region of the tail of the pancreas with a maximum diameter of 6.3 cm increased since prior study when it measured about 3.6 cm in maximum diameter. There is internal debris. Heterogeneous signal in the liver suggests fatty infiltration. No free fluid is seen in the visualized abdomen. No other significant findings are seen. IMPRESSION: No biliary abnormality identified as discussed in detail above. Increased size of a complex pancreatic pseudocyst in the tail of the pancreas now measuring 6.3 cm in maximum diameter. Signed by Monroe Sanders MD 10/31/2016 01:14 P
== END ==
LOC: M RAD 09:58
PROVIDERS: ATTEND Internal Medicine
DX: K86.1 Other chronic pancreatitis (principal); K86.3 Pseudocyst of pancreas

== ENCOUNTER 2016-12-31 21:40 | Inpatient (IN) | payer OTHER ==
[~2016-12-31] VITALS: Ht 162.6 cm; Wt 56.3 kg
[~2016-12-31 21:40] MED LIST changes: -ZOFR20TA PO
[2016-12-31] MEDS: MORPHINE 4 MG/ML 1ML SYRINGE IV PRN (23:13)
[2016-12-31] MEDS ORDERED: NS 1,000 ML IV ONE (23:15)
[2016-12-31] MEDS ORDERED: ONDANSETRON 4MG/2ML VIAL (J2405) As Ordered ONE (23:23)
[2016-12-31 23:24] LABS: BASO % 0.4 % (0.0-1.0); EOS # 0.1 K/mm3 (0.0-0.50); EOS % 1.7 % (0.0-3.0); LARGE UNSTAINED CELL # 0.1 K/mm3 (0.0-0.4); LARGE UNSTAINED CELL % 1.5 % (0.0-4.0); LYMPH # 2.2 K/mm3 (1.5-6.5); LYMPH % 31.5 % (24.0-44.0); MEAN CORPUSCULAR HGB CONC 35.2 g/dl (32.0-36.5); MEAN CORPUSCULAR VOLUME 93.9 fl (80.0-96.0); MONO # 0.4 K/mm3 (0.0-0.8); MONO % 6.3 % (0.0-5.0); NEUTROPHILS # 4.1 K/mm3 (1.8-7.7); NEUTROPHILS % 58.6 % (36.0-66.0); PLATELET COUNT, AUTOMATED 246 k/mm3 (150-450); RED CELL DISTRIBUTION WIDTH 11.8 % (11.5-14.5); WHITE BLOOD COUNT 6.9 K/mm3 (4.0-10.0)
[2016-12-31 23:25] LABS: ALBUMIN 3.7 GM/DL (3.2-5.2); ALBUMIN/GLOBULIN RATIO 0.84 (1.00-1.93); ALKALINE PHOSPHATASE 60 U/L (45-117); ALT/SGPT 18 U/L (12-78); AMYLASE 107 U/L (25-115); ANION GAP 6 MEQ/L (8-16); AST/SGOT 12 U/L (15-37); BILIRUBIN,DIRECT < 0.1 MG/DL (0.0-0.2); BILIRUBIN,TOTAL 0.2 MG/DL (0.2-1.0); BLOOD UREA NITROGEN 12 MG/DL (7-18); CALCIUM LEVEL 9.4 MG/DL (8.5-10.1); CARBON DIOXIDE LEVEL 26 MEQ/L (21-32); CHLORIDE LEVEL 105 MEQ/L (98-107); CREATININE FOR GFR 0.69 MG/DL (0.55-1.02); GLOMERULAR FILTRATION RATE > 60.0 (>60); GLUCOSE, FASTING 91 MG/DL (70-105); POTASSIUM SERUM 3.7 MEQ/L (3.5-5.1); SODIUM LEVEL 137 MEQ/L (136-145); TOTAL PROTEIN 8.1 GM/DL (6.4-8.2)
[2016-12-31] MEDS ORDERED: ONDANSETRON 4MG/2ML VIAL (J2405) IV ONE (23:30)
[2016-12-31] MEDS ORDERED: ISOVUE-370 76% 100ML VIAL (Q9967) As Ordered ONE (23:44)
[2017-01-01] VITALS (7 sets, daily range): BP systolic 94–125; BP diastolic 51–70
[2017-01-01] MEDS: MORPHINE 4 MG/ML 1ML SYRINGE IV PRN ×6 (00:05→20:09)
--- NOTE | 2017-01-01 00:30 | REPUSA ---
CT of the abdomen and pelvis with contrast Clinical statement: Pain. Pancreatitis. Technique: Multiple axial CT images were obtained from the base of the lungs through the floor of the pelvis utilizing 5 mm axial slices after administration of nonionic intravenous contrast. Coronal an d sagittal reconstructions were also obtained. Comparison: 09/26/2016. Findings: Chest: The visualized lung bases are clear. Abdomen: There is a large cystic lesion in the tail the pancreas measuring 5.5 x 6.8 cm. A catheter i s seen within this lesion, draining into the stomach. This lesion is larger than when compared to the prior study. No significant peripancreatic inflammatory changes are seen at this time however. There is diffuse heterogeneous attenuation within the liver. No focal hepatic masses are seen. The hepatic and portal veins are patent. There is no evidence of biliary ductal dilatation. The spleen, kidneys, gallbladder, and adrenal glands are unremarkable. The aorta is within normal limits. There is no aimee dence of abdominal lymphadenopathy or ascites. Pelvis: The bowel is unremarkable, with no obstructive or inflammatory changes. The urinary bladder i s within normal limits. The other pelvic structures appear grossly intact. There is no evidence of pe lvic lymphadenopathy or ascites. Bones: There are no suspicious osseous abnormalities seen. Impression: 1. Interval increase in size in the large cystic lesion in the tail the pancreas since the prior stud y. This likely representing pancreatic pseudocyst secondary to previous pancreatitis. A catheter is i n place within this cystic lesion, draining into the stomach. There is no evidence of acute pancreati tis at this time. 2. Heterogeneous attenuation throughout the liver, likely representing fatty infiltration. No focal h epatic masses are seen. 3. No obstructive or inflammatory bowel changes.
[2017-01-01] MEDS ORDERED: MORPHINE 4 MG/ML 1ML SYRINGE IV ONE (01:45)
[2017-01-01] MEDS ORDERED: ACETAMINOPHEN TAB 650MG DOSE (2X325MG) PO PRN (02:15)
[2017-01-01] MEDS: ONDANSETRON 4MG/2ML VIAL (J2405) IV PRN ×3 (04:27→20:07)
[2017-01-01] MEDS: NS 1,000 ML IV SCH ×3 (04:29→23:35)
[2017-01-01] MEDS: LEVOTHYROXINE 150MCG TABLET (0.15MG) PO SCH (06:00)
[2017-01-01 06:31] LABS: BASO % 0.4 % (0.0-1.0); EOS # 0.1 K/mm3 (0.0-0.50); EOS % 1.7 % (0.0-3.0); LARGE UNSTAINED CELL # 0.1 K/mm3 (0.0-0.4); LARGE UNSTAINED CELL % 1.7 % (0.0-4.0); LYMPH # 2.3 K/mm3 (1.5-6.5); LYMPH % 43.6 % (24.0-44.0); MEAN CORPUSCULAR HEMOGLOBIN 32.4 pg (27.0-33.0); MEAN CORPUSCULAR HGB CONC 33.6 g/dl (32.0-36.5); MEAN CORPUSCULAR VOLUME 96.4 fl (80.0-96.0); MONO # 0.5 K/mm3 (0.0-0.8); MONO % 9.3 % (0.0-5.0); NEUTROPHILS # 2.3 K/mm3 (1.8-7.7); NEUTROPHILS % 43.3 % (36.0-66.0); PLATELET COUNT, AUTOMATED 216 k/mm3 (150-450); RED CELL DISTRIBUTION WIDTH 12.1 % (11.5-14.5); WHITE BLOOD COUNT 5.4 K/mm3 (4.0-10.0)
[2017-01-01 06:38] LABS: ALBUMIN/GLOBULIN RATIO 0.78 (1.00-1.93); ALKALINE PHOSPHATASE 43 U/L (45-117); ALT/SGPT 14 U/L (12-78); AMYLASE 82 U/L (25-115); ANION GAP 7 MEQ/L (8-16); AST/SGOT 9 U/L (15-37); BILIRUBIN,TOTAL 0.2 MG/DL (0.2-1.0); BLOOD UREA NITROGEN 10 MG/DL (7-18); CALCIUM LEVEL 8.2 MG/DL (8.5-10.1); CARBON DIOXIDE LEVEL 25 MEQ/L (21-32); CHLORIDE LEVEL 111 MEQ/L (98-107); CREATININE FOR GFR 0.48 MG/DL (0.55-1.02); GLOMERULAR FILTRATION RATE > 60.0 (>60); GLUCOSE, FASTING 83 MG/DL (70-105); POTASSIUM SERUM 4.3 MEQ/L (3.5-5.1); SODIUM LEVEL 143 MEQ/L (136-145); T UPTAKE 36 % (30-39); THYROXINE (T4) 7.1 UG/DL (4.5-12.0); TOTAL PROTEIN 6.6 GM/DL (6.4-8.2)
[2017-01-01 07:02] LABS: ALBUMIN 2.9 GM/DL (3.2-5.2)
[2017-01-01 08:17] LABS: FREE T4 0.98 NG/DL (0.76-1.46)
--- NOTE | 2017-01-01 12:07 | IPNPDOC ---
Text Note Date of Service The patient was seen on 01/01/17. NOTE Subjective: Patient states her abdominal pain, nausea and vomiting have improved. Objective: Vitals: (see below) General: No acute distress, laying comfortably in bed. HEENT: Moist mucous membranes. Neck: No JVD or lymphadenopathy Cardiac: RRR, No murmurs Pulm: Clear to auscultation b/l. No wheezing, rhonchi Abd: Mild TPP in epigastric/LUQ region. No rebound/guarding/rigidity. ND + BS Ext: No edema or cyanosis Labs (see below) Images: CT Abd/pelvis 12/31/16 Impression: 1. Interval increase in size in the large cystic lesion in the tail the pancreas since the prior study. This likely representing pancreatic pseudocyst secondary to previous pancreatitis. A catheter is in place within this cystic lesion, draining into the stomach. There is no evidence of acute pancreatitis at this time. 2. Heterogeneous attenuation throughout the liver, likely representing fatty infiltration. No focal hepatic masses are seen. 3. No obstructive or inflammatory bowel changes. Assessment/Plan 1. Large pancreatic cystic lesion in the tail of the pancreas- patient recently had a stent placed on Monday by Dr. Marroquin. ED had spoken to him yesterday and although our imaging notes that there is an increase in the size of the cystic lesion, he notes that there is a slight decrease from his recent imaging. The patient's lipase is also improving. Her nausea/vomiting/abd pain is improving as well. LFTs within normal limits. We'll continue IV fluids, pain control, sips of clears. 2. History of papillary thyroid cancer status post resection. Hypothyroidism status post resection. On levothyroxine. DVT prophy: Out of bed and ambulate. VS,Fishbone, I+O VS, Fishbone, I+O Laboratory Tests 12/31/16 22:47 Red Blood Count 3.92 L, Mean Corpuscular Volume 93.9, Mean Corpuscular Hemoglobin 33.0, Mean Corpuscular Hemoglobin Concent 35.2, Red Cell Distribution Width 11.8, Neutrophils (%) (Auto) 58.6, Lymphocytes (%) (Auto) 31.5, Monocytes (%) (Auto) 6.3 H, Eosinophils (%) (Auto) 1.7, Basophils (%) ( Auto) 0.4, Neutrophils # (Auto) 4.1, Lymphocytes # (Auto) 2.2, Monocytes # (Auto ) 0.4, Eosinophils # (Auto) 0.1, Basophils # (Auto) 0.0 01/01/17 05:31 Red Blood Count 3.47 L, Mean Corpuscular Volume 96.4 H, Mean Corpuscular Hemoglobin 32.4, Mean Corpuscular Hemoglobin Concent 33.6, Red Cell Distribution Width 12.1, Neutrophils (%) (Auto) 43.3, Lymphocytes (%) (Auto) 43.6, Monocytes (%) (Auto) 9.3 H, Eosinophils (%) (Auto) 1.7, Basophils (%) ( Auto) 0.4, Neutrophils # (Auto) 2.3, Lymphocytes # (Auto) 2.3, Monocytes # (Auto ) 0.5, Eosinophils # (Auto) 0.1, Basophils # (Auto) 0.0, Calcium Level 8.2 L, Aspartate Amino Transf (AST/SGOT) 9 L, Alanine Aminotransferase (ALT/SGPT) 14, Alkaline Phosphatase 43 L, Total Bilirubin 0.2, Total Protein 6.6, Albumin 2.9 # L Vital Signs Date Time Temp Pulse Resp B/P (MAP) Pulse Ox O2 Delivery O2 Flow Rate FiO2 01/01/17 11:26 16 Room Air 01/01/17 10:00 97.9 73 94/51 (87) 98 I&O- Last 24 Hours up to 6 AM 01/02/17 05:59 Intake Total 840 ml Output Total 400 ml Balance 440 ml ARMIN CORREA MD Jan 01, 2017 12:07
--- NOTE | 2017-01-01 13:21 | HPE ---
DATE OF ADMISSION: 12/31/2016 PRIMARY CARE PROVIDER: Dr. Barajas at [facility] GASTROINTESTINAL (GI) SPECIALIST: Dr. Mckeon, [place], [place] Dr. Marroquin, [place], [place] CHIEF COMPLAINT: Left upper quadrant abdominal. This is a 26-year-old female with a history of a pancreatic cyst, which she is being followed by Dr. Mckeon in [place]. She was in [facility] for pancreatitis in September and was noted to have the cyst. Dr. Mckeon has been following her, and referred her to GI specialist, Dr. Marroquin, who recently put a stent into the cyst into her stomach. She states she had felt well up until 2 days ago, she began having left upper quadrant discomfort again. She came to the emergency room. Upon arrival, temperature was 98, blood pressure was 109/70, pulse 93, respirations were 18, oxygen saturation was 98%. She had felt nauseated but no vomiting. Laboratory studies were done. White count was 6.9, hemoglobin 12.9, hematocrit 36.8, platelets of 246. Sodium was 137, potassium 3.7, chloride 105, CO2 26, BUN was 12, creatinine 0.69, lactic acid was 0.5, amylase was 107, lipase was 596, which was improved. She had a CT of the abdomen and pelvis, which showed an interval increase in size in the large cystic lesion on the tail of the pancreas since the prior study. No evidence of acute pancreatitis at this time. Heterogeneous attenuation throughout the liver, likely representing fatty infiltration. No focal hepatic masses seen. No obstructive or inflammatory bowel changes. The emergency room PA spoke with Dr. Marroquin. She faxed him the dimensions. He stated that actually the cyst was smaller than it previously had been before the drain was put in. He recommended she be monitored overnight to ensure that her white count did not elevate, that she was not becoming infected, to monitor the lipase. The patient was agreeable and will be admitted to observation status to the medical-surgical floor. Will give gentle fluid hydration, only sips of clear liquid, recheck labs in the morning. The patient will be admitted to the service of Dr. Reid to the medical-surgical floor. ALLERGIES: CEFACLOR. SOCIAL HISTORY: She is a single soldier, currently stationed at [employer]. Ethyl alcohol (ETOH): None. Smokes: She quit in September of 2016. Recreational drug use: None. PAST MEDICAL HISTORY: She had thyroidectomy for thyroid cancer. She had radioactive iodine therapy and is now hypothyroid, on levothyroxine. PAST SURGICAL HISTORY: Thyroidectomy. Cystic lesion in pancreas with stent in place. Davis teeth extraction. FAMILY HISTORY: Noncontributory. CURRENT MEDICATION LIST: - levothyroxine 150 mcg by mouth daily LABORATORY STUDIES: WBC 6.9, hemoglobin 12.9, hematocrit 36.8, platelets 246. Sodium 137, potassium 3.8, chloride 105, CO2 26, amylase 107, lipase 596. REVIEW OF SYSTEMS: Unremarkable other than the left upper quadrant pain and slight nausea. She had had no fever, no chills, no vomiting. OBJECTIVE: A 26-year-old cooperative female in no acute distress. Blood pressure 121/70, pulse 72, respirations 78, temperature 97.7, height 64 inches, weight 56.8 kg, body mass index (BMI) 21.5. The patient is alert and oriented times three. Pupils are equal and reactive to light. Extraocular movements intact. Cornea and sclerae clear. Conjunctivae normal. No facial symmetry. Pharynx: Tongue and gums pink and moist. Tongue is midline. Neck is supple without lymphadenopathy. No thyromegaly. No goiter. Carotids 2+ without bruits. Chest is clear to auscultation without wheeze or retractions. Heart is regular. Abdomen is soft, has left upper quadrant tenderness. No rebound or guarding. No masses, pulsations or bruits. No organomegaly. Bowel sounds are positive. Genital/Rectal: Not done. Extremities show equal strength, full range of motion. No cyanosis, clubbing or edema. Peripheral pulses equal and palpable bilaterally. Skin is warm and dry. IMPRESSION AND PLAN: Admit to observation status to the service of Dr. Reid for pancreatic cyst, left upper quadrant abdominal pain, gentle intravenous (IV) hydration, sips of clear liquids, repeat labs in the morning. MTDD
[2017-01-02 02:00] VITALS: BP 120/56
[2017-01-02] MEDS: ONDANSETRON 4MG/2ML VIAL (J2405) IV PRN ×2 (04:14→11:24)
[2017-01-02] MEDS: MORPHINE 4 MG/ML 1ML SYRINGE IV PRN ×5 (04:15→21:40)
[2017-01-02 06:00] VITALS: BP 113/54
[2017-01-02 06:10] LABS: BASO % 0.2 % (0.0-1.0); EOS # 0.1 K/mm3 (0.0-0.50); EOS % 1.9 % (0.0-3.0); LARGE UNSTAINED CELL # 0.1 K/mm3 (0.0-0.4); LARGE UNSTAINED CELL % 1.3 % (0.0-4.0); LYMPH # 1.3 K/mm3 (1.5-6.5); LYMPH % 26.2 % (24.0-44.0); MEAN CORPUSCULAR HEMOGLOBIN 32.4 pg (27.0-33.0); MEAN CORPUSCULAR HGB CONC 34.2 g/dl (32.0-36.5); MEAN CORPUSCULAR VOLUME 94.7 fl (80.0-96.0); MONO # 0.4 K/mm3 (0.0-0.8); MONO % 7.6 % (0.0-5.0); NEUTROPHILS # 3.2 K/mm3 (1.8-7.7); NEUTROPHILS % 62.9 % (36.0-66.0); PLATELET COUNT, AUTOMATED 225 k/mm3 (150-450); RED CELL DISTRIBUTION WIDTH 11.7 % (11.5-14.5)
[2017-01-02] MEDS: LEVOTHYROXINE 150MCG TABLET (0.15MG) PO SCH (06:17)
[2017-01-02 06:32] LABS: ALBUMIN 2.7 GM/DL (3.2-5.2); ALBUMIN/GLOBULIN RATIO 0.77 (1.00-1.93); ALKALINE PHOSPHATASE 40 U/L (45-117); ALT/SGPT 13 U/L (12-78); AMYLASE 72 U/L (25-115); ANION GAP 11 MEQ/L (8-16); AST/SGOT 8 U/L (15-37); BILIRUBIN,TOTAL 0.3 MG/DL (0.2-1.0); BLOOD UREA NITROGEN 5 MG/DL (7-18); CALCIUM LEVEL 8.1 MG/DL (8.5-10.1); CARBON DIOXIDE LEVEL 23 MEQ/L (21-32); CHLORIDE LEVEL 105 MEQ/L (98-107); CREATININE FOR GFR 0.34 MG/DL (0.55-1.02); GLOMERULAR FILTRATION RATE > 60.0 (>60); GLUCOSE, FASTING 67 MG/DL (70-105); POTASSIUM SERUM 3.8 MEQ/L (3.5-5.1); SODIUM LEVEL 139 MEQ/L (136-145); T UPTAKE 37 % (30-39); TOTAL PROTEIN 6.2 GM/DL (6.4-8.2)
[2017-01-02] MEDS: NS 1,000 ML IV SCH ×2 (08:12→18:10)
[2017-01-02 10:00] VITALS: BP 115/58
[2017-01-02] MEDS: PERCOCET 5MG/325MG TAB PO PRN ×2 (11:25→20:20)
--- NOTE | 2017-01-02 12:03 | IPNPDOC ---
Text Note Date of Service The patient was seen on 01/02/17. NOTE Subjective: Patient states her abdominal pain has improved. No N/V. Tolerating clears. Objective: Vitals: (see below) General: No acute distress, laying comfortably in bed. HEENT: Moist mucous membranes. Neck: No JVD or lymphadenopathy Cardiac: RRR, No murmurs Pulm: Clear to auscultation b/l. No wheezing, rhonchi Abd: Mild TPP in epigastric/LUQ region. No rebound/guarding/rigidity. ND + BS Ext: No edema or cyanosis Labs (see below) Images: CT Abd/pelvis 12/31/16 Impression: 1. Interval increase in size in the large cystic lesion in the tail the pancreas since the prior study. This likely representing pancreatic pseudocyst secondary to previous pancreatitis. A catheter is in place within this cystic lesion, draining into the stomach. There is no evidence of acute pancreatitis at this time. 2. Heterogeneous attenuation throughout the liver, likely representing fatty infiltration. No focal hepatic masses are seen. 3. No obstructive or inflammatory bowel changes. Assessment/Plan 1. Large pancreatic cystic lesion in the tail of the pancreas- patient recently had a stent placed on Monday by Dr. Marroquin. ED had spoken to him yesterday and although our imaging notes that there is an increase in the size of the cystic lesion, he notes that there is a slight decrease from his recent imaging. The patient's lipase is also improving. Her nausea/vomiting/abd pain is improving as well. LFTs within normal limits. We'll continue IV fluids, pain control. Advance diet to full liquids. 2. History of papillary thyroid cancer status post resection. Hypothyroidism status post resection. On levothyroxine. DVT prophy: Out of bed and ambulate. VS,Fishbone, I+O VS, Fishbone, I+O Laboratory Tests 01/02/17 05:34 Red Blood Count 3.26 L, Mean Corpuscular Volume 94.7, Mean Corpuscular Hemoglobin 32.4, Mean Corpuscular Hemoglobin Concent 34.2, Red Cell Distribution Width 11.7, Neutrophils (%) (Auto) 62.9, Lymphocytes (%) (Auto) 26.2, Monocytes (%) (Auto) 7.6 H, Eosinophils (%) (Auto) 1.9, Basophils (%) ( Auto) 0.2, Neutrophils # (Auto) 3.2, Lymphocytes # (Auto) 1.3 L, Monocytes # ( Auto) 0.4, Eosinophils # (Auto) 0.1, Basophils # (Auto) 0.0, Calcium Level 8.1 L , Aspartate Amino Transf (AST/SGOT) 8 L, Alanine Aminotransferase (ALT/SGPT) 13 , Alkaline Phosphatase 40 L, Total Bilirubin 0.3, Total Protein 6.2 L, Albumin 2.7 L Vital Signs Date Time Temp Pulse Resp B/P (MAP) Pulse Ox O2 Delivery O2 Flow Rate FiO2 01/02/17 11:25 16 Room Air 01/02/17 10:00 97.5 85 115/58 (77) 99 I&O- Last 24 Hours up to 6 AM 01/03/17 06:00 Intake Total 960 ml Output Total 800 ml Balance 160 ml ARMIN CORREA MD Jan 02, 2017 12:03
[2017-01-02 14:00] VITALS: BP 107/58
[2017-01-02] MEDS: PROMETHAZINE INJ 25 MG/ML VIAL (J2550) IV PRN ×2 (14:39→21:40)
[2017-01-02 18:00] VITALS: BP 124/66
[2017-01-02 22:00] VITALS: BP 118/60
[2017-01-03 02:00] VITALS: BP 106/56
[2017-01-03] MEDS: MORPHINE 4 MG/ML 1ML SYRINGE IV PRN ×2 (03:20→09:40)
[2017-01-03 06:00] VITALS: BP 104/54
[2017-01-03] MEDS: PERCOCET 5MG/325MG TAB PO PRN (06:01)
[2017-01-03] MEDS: ONDANSETRON 4MG/2ML VIAL (J2405) IV PRN (06:01)
[2017-01-03] MEDS: LEVOTHYROXINE 150MCG TABLET (0.15MG) PO SCH (06:01)
[2017-01-03 06:28] LABS: BASO % 0.5 % (0.0-1.0); EOS # 0.1 10^3/uL (0.0-0.50); EOS % 1.4 % (0.0-3.0); IMMATURE GRANULOCYTE % 0.2 % (0-0); LYMPH # 1.9 10^3/uL (1.5-6.5); LYMPH % 32.5 % (24.0-44.0); MEAN CORPUSCULAR HEMOGLOBIN 31.6 pg (27.0-33.0); MEAN CORPUSCULAR HGB CONC 33.4 g/dl (32.0-36.5); MEAN CORPUSCULAR VOLUME 94.5 fl (80.0-96.0); MONO # 0.6 10^3/uL (0.0-0.8); MONO % 9.9 % (0.0-5.0); NEUTROPHILS # 3.3 10^3/uL (1.8-7.7); NEUTROPHILS % 55.5 % (36.0-66.0); PLATELET COUNT, AUTOMATED 211 10^3/uL (150-450); RED CELL DISTRIBUTION WIDTH 11.9 % (11.5-14.5); WHITE BLOOD COUNT 5.9 10^3/uL (4.0-10.0)
[2017-01-03 07:09] LABS: ALBUMIN 2.4 GM/DL (3.2-5.2); ALBUMIN/GLOBULIN RATIO 0.67 (1.00-1.93); ALKALINE PHOSPHATASE 47 U/L (45-117); ALT/SGPT 14 U/L (12-78); AMYLASE 70 U/L (25-115); ANION GAP 8 MEQ/L (8-16); AST/SGOT 12 U/L (15-37); BILIRUBIN,TOTAL 0.1 MG/DL (0.2-1.0); BLOOD UREA NITROGEN 3 MG/DL (7-18); CALCIUM LEVEL 8.3 MG/DL (8.5-10.1); CARBON DIOXIDE LEVEL 25 MEQ/L (21-32); CHLORIDE LEVEL 108 MEQ/L (98-107); CREATININE FOR GFR 0.41 MG/DL (0.55-1.02); GLOMERULAR FILTRATION RATE > 60.0 (>60); GLUCOSE, FASTING 103 MG/DL (70-105); POTASSIUM SERUM 3.6 MEQ/L (3.5-5.1); SODIUM LEVEL 141 MEQ/L (136-145); T UPTAKE 35 % (30-39); THYROXINE (T4) 8.1 UG/DL (4.5-12.0)
[2017-01-03] MEDS: NS 1,000 ML IV SCH (07:40)
[2017-01-03 08:30] VITALS: BP 120/60
[2017-01-03] MEDS: PROMETHAZINE INJ 25 MG/ML VIAL (J2550) IV PRN (10:23)
[2017-01-03] MEDS ORDERED: ZOFR20TA PO (11:19)
--- NOTE | 2017-01-04 14:58 | DSES ---
DATE OF ADMISSION: 12/31/2016 DATE OF DISCHARGE: 01/03/2017 ATTENDING PHYSICIANS: MD Jarrett Kwok MD DISCHARGED BY: Jarrett Goode MD PRIMARY CARE PHYSICIAN: [facility]. REFERRING PHYSICIAN: None. CONSULTING PHYSICIAN: None. CONDITION ON DISCHARGE: Stable. FINAL DIAGNOSIS: Large pancreatic cystic lesion in the tail of pancreas/pancreatitis. PROCEDURES: None. HISTORY OF PRESENT ILLNESS: The patient is a 26-year-old female with a past medical history of papillary thyroid cancer status post thyroidectomy who presented to the emergency room (ER) complaining of abdominal pain. The patient follows with Dr. Mckeon in [place]. In [place], she was seen by Dr. Marroquin who found out she had a pancreatic pseudocyst and was stented. The patient was subsequently sent ana and throughout the course of the week she began to develop abdominal pain and came in for evaluation at [facility]. Upon evaluation at [facility], she was found to have possible enlargement of her cyst, however upon discussion with quality rn at [place], imaging actually revealed that the cyst was smaller in size compared to images that they have on their system. HOSPITAL COURSE: 1. Large pancreatic cystic lesion in tail of pancreas. The patient had a stent placed on Monday by Dr. Marroquin. The case was discussed with Dr. Marroquin at [place] who indicated that the imaging relative to what they have indicates that the cystic lesion was smaller. The patient's lipase was also elevated upon admission and has been trending down. She initially had nausea and vomiting that has resolved. Abdominal pain has been resolved. LFTs are within normal limits. The patient was put on IV fluid hydration and pain control. Her diet has been fully advanced and she has been tolerating it. The patient has been advised to followup with her primary care provider as well as her quality rn within the next seven days. 2. History of papillary thyroid cancer status post resection. She has hypothyroidism. She continues with levothyroxine. 3. Deep vein thrombosis (DVT) prophylaxis. She was put on sleeve compression devices. DISCHARGE MEDICATIONS: The patient was discharged home with the following medication list: - levothyroxine 150 mcg by mouth daily - ondansetron 4 mg by mouth every 6 hours as needed for nausea DISCHARGE INSTRUCTIONS: Patient has been advised to followup with her primary care provider and followup with quality rn within the next seven days. She has been advised to remain compliant with her treatment plan and medications. Return to the emergency room if she experiences any problems. Time spent on discharge greater than 35 minutes.
== END 2017-01-03 13:14 | disposition home or self-care (01) | DRG 439 ==
LOC: M ED 21:40 → M ED INP 21:41 → OBSVTOIN 21:41 → M MSPAV 01-01 03:42 → OBSVTOIN 01-02 11:24 → INTOOBSV 01-02 11:24
PROVIDERS: ADMIT Internal Medicine; ATTEND Internal Medicine
DX: K86.1 Other chronic pancreatitis (principal); K86.3 Pseudocyst of pancreas; Z85.850 Personal history of malignant neoplasm of thyroid; Z79.899 Other long term (current) drug therapy; Z88.8 Allergy status to other drugs, medicaments and biological substances; E89.0 Postprocedural hypothyroidism

== ENCOUNTER → 2017-01-23 | Outpatient (CLI) | payer OTHER ==
[~2017-01-23] MED LIST changes: +GASTROGRAFIN SOLUTION 30ML (Q9963) As Ordered ONE; +ISOVUE-370 76% 100ML VIAL (Q9967) As Ordered ONE; +ZOFR20TA PO
--- NOTE | 2017-01-24 06:44 | REP ---
Clinical: Pancreatic pseudocyst. Comparison: 12/31/2016. Technique: Axial precontrast, arterial phase, venous phase, and delayed phase images through the abdomen using oral and 100 ml Isovue 370 intravenous contrast material. Findings: A pigtail catheter is identified extending from the distal body of the pancreas into the stomach and the previously noted 7.5 cm pancreatic cyst has essentially completely resolved with only small area of low density surrounding the pigtail catheter now identified. The remainder of the pancreas is unremarkable and demonstrates normal homogeneous enhancement pattern. Liver, spleen, gallbladder, bilateral adrenal glands and kidneys are normal. The visualized enteric system is unremarkable. Abdominal aorta and branch vessels are normal. No ascites. No free air. No obvious adenopathy or mass. Lung bases are clear. Impression: Previously identified 7.5 cm pancreatic cyst with a draining pigtail catheter into the stomach has essentially completely resolved. No further acute abnormality or pathology appreciated within the visualized abdomen. Signed by Jean Paul Renteria MD 01/24/2017 06:35 A
== END ==
LOC: M RAD 16:13
PROVIDERS: ATTEND Internal Medicine
DX: K86.3 Pseudocyst of pancreas (principal)
CPT/HCPCS: 74170; Q9963; Q9967

== ENCOUNTER → 2017-02-15 | Outpatient (CLI) | payer OTHER ==
[~2017-02-15] MED LIST changes: -GASTROGRAFIN SOLUTION 30ML (Q9963) As Ordered ONE; -ISOVUE-370 76% 100ML VIAL (Q9967) As Ordered ONE
--- NOTE | 2017-02-15 08:22 | REP ---
Complete abdominal ultrasound: Comparisons are the abdominal ultrasound 09/20/[address] of the abdomen and pelvis 01/23/2017. There is no cholelithiasis, gallbladder wall thickening or pericholecystic fluid. There is no intrahepatic or extrahepatic biliary duct dilatation. The common duct measures 4.4 mm in diameter. The hepatic parenchyma is homogeneous and otherwise unremarkable. No pancreatic cyst is identified. No pancreatic drain is identified. The visualized portions of the pancreas are otherwise unremarkable. The spleen is homogeneous and measures 9.5 cm craniocaudad and is not enlarged and otherwise unremarkable. The right kidney measures 10.2 cm length and the left kidney 10.7 cm length of the kidneys are normal size. There are no renal calculi, hydronephrosis, mass or cyst on the right on the left. The abdominal aorta is unremarkable. There is no abdominal free fluid. Impression: Essentially negative abdominal ultrasound. No pancreatic cyst or pancreatic drain is identified by ultrasound. Signed by Monroe Breaux MD 02/15/2017 08:14 A
== END ==
LOC: M RAD 07:10
PROVIDERS: ATTEND Internal Medicine
DX: K86.3 Pseudocyst of pancreas (principal)

== ENCOUNTER → 2017-03-23 | Outpatient (CLI) | payer OTHER ==
--- NOTE | 2017-03-23 08:43 | REP ---
Complete abdominal ultrasound: Comparisons are the CT of the abdomen pelvis dated 09/26/2016 and abdominal ultrasound dated 02/15/2017. On the comparison CT there was a 3.6 cm cyst in the tail of the pancreas. On the comparison ultrasound. The body and tail of the pancreas for obscured by bowel and this cyst was not demonstrated. On the study today there is a negative Braxton's sign to transducer pressure. There is no cholelithiasis, gallbladder wall thickening or pericholecystic fluid. There is no intrahepatic or extrahepatic biliary duct dilatation. The common duct measures 3.8 mm in diameter. Hepatic parenchyma is homogeneous and unremarkable. The visualized portion of the pancreatic head is unremarkable. The body and tail are again obscured by bowel gas and cannot be visualized. The cyst in the tail of the pancreas on the comparison CT, therefore, is not visualized by ultrasound. The spleen is normal size measuring 7.9 x 7 by 0 x 2.8 cm, homogeneous and otherwise unremarkable. There are no renal calculi. There is no hydronephrosis. There is no renal solid or cystic mass on the right or the left. Right kidney measures 9.9 x 4.0 x 4.3 cm. The left kidney measures 10.9 x 4.4 x 4.8 cm. The kidneys are normal size. There is no abdominal aortic aneurysm. The aorta is otherwise unremarkable. There is no ascites. Impression: Essentially negative complete abdominal ultrasound. However, the body and tail of the pancreas are obscured by bowel gas and the cyst in the tail of pancreas are identified on the comparison CT cannot be visualized by ultrasound. Signed by Monroe Breaux MD 03/23/2017 08:34 A
== END ==
LOC: M RAD 07:32
PROVIDERS: ATTEND Internal Medicine
DX: K86.3 Pseudocyst of pancreas (principal)

== ENCOUNTER → 2017-04-24 | Outpatient (REF) | payer OTHER | LOC: M LABDRAW1 11:44 | DX: E89.0 Postprocedural hypothyroidism (principal) ==

== ENCOUNTER → 2017-09-15 | Outpatient (REF) | payer OTHER ==
[2017-09-15 17:05] LABS: THYROGLOBULIN ANTIBODY 23.6 U/ML (<60.0)
[2017-09-15 17:08] LABS: THYROID STIMULATING HORMONE 0.059 uIU/ML (0.358-3.740)
[2017-09-15 17:08] LABS: FREE T4 1.41 NG/DL (0.76-1.46)
[2017-09-17 08:10] LABS: THRYOGLOBULIN ANTIBODIES (ATA) < 1.0 IU/mL (0.0-0.9); THYROGLOBULIN QUANTITATIVE < 0.1 ng/mL (1.5-38.5)
== END ==
LOC: M LABDRAW1 13:00
DX: C73 Malignant neoplasm of thyroid gland (principal); E89.0 Postprocedural hypothyroidism
CPT/HCPCS: 84443